=== PATIENT | male | born 1945 | race African-American/Black ===

== ENCOUNTER 2021-11-19 16:38 | Inpatient (IN) | payer OTHER ==
[2021-11-19 19:06] LABS: BASO % 0.5 % (0-2.0); EOS % 0.4 % (0-4.5); HEMOGLOBIN 10.8 GM/dL (11.7-16.9); MCH 23.6 pg (25.7-33.7); MCHC 32.7 g/dl (32.0-35.9); MEAN CELL VOLUME 72.3 fl (80-96); MEAN PLT VOLUME 8.6 fl (7.5-11.1); MONO % 11.8 % (3.8-10.2); NEUT % 78.3 % (42.8-82.8); PLATELET COUNT 283 10^3/uL (134-434); RBC 4.57 M/mm3 (4.00-5.60); RDW 15.6 % (11.9-15.9); WHITE BLOOD COUNT 11.6 K/mm3 (4.0-10.0)
[2021-11-19 19:11] LABS: INR 1.88 (0.83-1.09); PROTHROMBIN TIME (PATIENT) 21.2 SEC (9.7-13.0)
[2021-11-19 19:14] LABS: ACTIVATED PTT 37.4 SECONDS (25.2-36.5)
[2021-11-19 19:16] LABS: CHLORIDE 97 mmol/L (98-107); SODIUM 136 mmol/L (136-145)
[2021-11-19 19:19] LABS: CALCIUM 9.2 mg/dL (8.5-10.1)
[2021-11-19 19:20] LABS: ANION GAP 10 MMOL/L (8-16); BLOOD UREA NITROGEN 41.2 mg/dL (7-18); CO2 29 mmol/L (21-32); GLUCOSE,RANDOM 139 mg/dL (74-106)
[2021-11-19 19:23] LABS: CREATININE 1.4 mg/dL (0.55-1.3); SGOT/AST 40 U/L (15-37); SGPT/ALT 132 U/L (13-61)
[2021-11-19 19:24] LABS: BILIRUBIN,TOTAL 0.4 mg/dL (0.2-1)
[2021-11-19 19:26] LABS: ALK PHOS 111 U/L (45-117)
[2021-11-19 20:05] LABS: LACTIC ACID 3.2 mmol/L (0.4-2.0)
[2021-11-19] MEDS ORDERED: SODIUM CHLORIDE 0.9% 500 ML INFUS.BAG IV ONE (20:43)
[2021-11-19 22:06] LABS: LACTIC ACID 3.3 mmol/L (0.4-2.0)
[2021-11-19 22:24] LABS: LIPASE 58 U/L (73-393)
[2021-11-20] MEDS ORDERED: PIPERACILLIN/TAZOB 4.5 GM 4.5 GM in DEXTROSE 5%-WATER 100 ML IVPB ONE (00:31)
[2021-11-20] MEDS ORDERED: PIPERACILLIN/TAZOB 4.5 GM 4.5 GM/100 ML BAG IVPB ONE ×2 (00:40→18:27)
[2021-11-20 01:17] LABS: EPI CELLS 22 /uL (0-25.1); HYALINE CASTS 1 /uL (0-3.1); URINE APPEARANCE CLEAR; URINE BACTERIA >9,000 /uL (0-1359); URINE BILIRUBIN NEGATIVE (NEGATIVE); URINE COLOR YELLOW; URINE GLUCOSE (UA) NEGATIVE (NEGATIVE); URINE KETONE NEGATIVE (NEGATIVE); URINE LEUK ESTERASE 1+ (NEGATIVE); URINE NITRITE NEGATIVE (NEGATIVE); URINE PROTEIN NEGATIVE (NEGATIVE); URINE RBC 85 /uL (0-23.9); URINE UROBILINOGEN 0.2 mg/dL (0.2-1.0); URINE WBC 58 /uL (0-25.8)
[2021-11-20] MEDS ORDERED: METOCLOPRAMIDE HCL INJECTION 10 MG/2 ML VIAL IVPUSH PRN (03:53)
[2021-11-20] MEDS ORDERED: METOCLOPRAMIDE HCL INJECTION 10 MG/2 ML VIAL ONE (08:44)
[2021-11-20] MEDS ORDERED: ALBUTEROL SO4 0.083% IH SOL 2.5 MG/3 ML VIAL.NEB. NEB ONE ×3 (08:44→16:18)
[2021-11-20] MEDS ORDERED: ASPIRIN 81 MG CHEWABLE TABLETS ONE (08:44)
[2021-11-20] MEDS: ALBUTEROL SO4 0.083% IH SOL 2.5 MG/3 ML VIAL.NEB. NEB SCH ×4 (09:04→20:10)
[2021-11-20] MEDS: INSULIN SLIDING SCALE (NOVOLOG) 1 VIAL SQ SCH ×4 (09:05→21:53)
[2021-11-20] MEDS: SEVELAMER CARBONATE 0.8 GM POWDER PACKET GT SCH ×2 (09:05→18:22)
[2021-11-20] MEDS: ASPIRIN 81 MG CHEWABLE TABLETS GT SCH (09:06)
[2021-11-20] MEDS: LEVOTHYROXINE NA 150 MCG TABLET GT SCH (09:06)
[2021-11-20 09:28] LABS: INR 2.37 (0.83-1.09)
[2021-11-20 09:30] LABS: ACTIVATED PTT 35.3 SECONDS (25.2-36.5)
[2021-11-20 09:54] LABS: CHLORIDE 100 mmol/L (98-107); SODIUM 135 mmol/L (136-145)
[2021-11-20] MEDS ORDERED: PIPERACILLIN/TAZOB 2.25 GM 2.25 GM in DEXTROSE 5%-WATER - 50 ML IVPB SCH (10:00)
[2021-11-20] MEDS ORDERED: FAMOTIDINE 40 MG/5 ML ORAL SUSPENSION PO SCH (10:00)
[2021-11-20 10:04] LABS: SGOT/AST 29 U/L (15-37)
[2021-11-20 10:05] LABS: CALCIUM 8.8 mg/dL (8.5-10.1)
[2021-11-20 10:06] LABS: ALBUMIN 2.6 g/dl (3.4-5.0); ANION GAP 12 MMOL/L (8-16); BLOOD UREA NITROGEN 40.4 mg/dL (7-18); CO2 24 mmol/L (21-32); GLUCOSE,RANDOM 148 mg/dL (74-106); MAGNESIUM 2.1 mg/dL (1.8-2.4); TOT PROT 7.4 g/dl (6.4-8.2)
[2021-11-20 10:07] LABS: SGPT/ALT 107 U/L (13-61)
[2021-11-20 10:09] LABS: ALK PHOS 103 U/L (45-117); CREATININE 1.4 mg/dL (0.55-1.3)
[2021-11-20 10:30] LABS: BILIRUBIN,TOTAL 0.7 mg/dL (0.2-1)
[2021-11-20 10:37] LABS: BASO % 0.3 % (0-2.0); EOS % 0.1 % (0-4.5); HEMATOCRIT 31.8 % (35.4-49); HEMOGLOBIN 10.2 GM/dL (11.7-16.9); LYMPH % 5.3 % (8-40); MCH 23.3 pg (25.7-33.7); MEAN CELL VOLUME 72.8 fl (80-96); MEAN PLT VOLUME 9.1 fl (7.5-11.1); MONO % 10.6 % (3.8-10.2); NEUT % 83.7 % (42.8-82.8); PLATELET COUNT 287 10^3/uL (134-434); RBC 4.37 M/mm3 (4.00-5.60); RDW 15.6 % (11.9-15.9); WHITE BLOOD COUNT 16.5 K/mm3 (4.0-10.0)
[2021-11-20] MEDS ORDERED: IRON SUCROSE INJECTION 200 MG in SODIUM CHLORIDE 90 ML IVPB ONE (11:00)
[2021-11-20] MEDS ORDERED: ACETAMINOPHEN 1000 MG/100 ML BAG IVPB PRN (11:12)
[2021-11-20] MEDS ORDERED: PANTOPRAZOLE SODIUM 40 MG VIAL ONE (11:43)
[2021-11-20] MEDS ORDERED: PHYTONADIONE 10 MG/1 ML AMP IVPB ONE (11:46)
[2021-11-20] MEDS: PANTOPRAZOLE SODIUM 40 MG VIAL IVPUSH SCH (11:48)
[2021-11-20] MEDS ORDERED: PHYTONADIONE 10 MG/1 ML AMP ONE (11:55)
[2021-11-20] MEDS ORDERED: WARFARIN NA 5 MG TABLET GT SCH (18:00)
[2021-11-20] MEDS: KCL 10 MEQ IVPB 10 MEQ/100 ML INFUS.BAG IVPB SCH ×3 (18:02→19:36)
[2021-11-20] MEDS: SODIUM CHLORIDE 500 ML IV SCH (18:05)
[2021-11-20] MEDS ORDERED: KCL 10 MEQ IVPB 30 MEQ/300 ML INFUS.BAG IVPB ONE (18:24)
[2021-11-20] MEDS: PIPERACILLIN/TAZOB 2.25 GM 2.25 GM in DEXTROSE 5%-WATER - 50 ML IVPB SCH (18:36)
[2021-11-20 18:58] LABS: INR 1.73 (0.83-1.09); PROTHROMBIN TIME (PATIENT) 20.3 SEC (9.7-13.0)
[2021-11-20 19:31] VITALS: BMI 24.6
[2021-11-21] MEDS: LEVOTHYROXINE NA 150 MCG TABLET GT SCH (06:15)
[2021-11-21] MEDS: INSULIN SLIDING SCALE (NOVOLOG) 1 VIAL SQ SCH ×4 (07:19→21:01)
[2021-11-21 07:28] LABS: HEMATOCRIT 28.7 % (35.4-49); HEMOGLOBIN 9.2 GM/dL (11.7-16.9); MCH 23.4 pg (25.7-33.7); MCHC 31.9 g/dl (32.0-35.9); MEAN CELL VOLUME 73.4 fl (80-96); PLATELET COUNT 245 10^3/uL (134-434); RBC 3.91 M/mm3 (4.00-5.60); RDW 15.4 % (11.9-15.9); WHITE BLOOD COUNT 16.3 K/mm3 (4.0-10.0)
[2021-11-21 07:30] LABS: INR 1.58 (0.83-1.09); PROTHROMBIN TIME (PATIENT) 18.6 SEC (9.7-13.0)
[2021-11-21 07:32] LABS: ACTIVATED PTT 31.7 SECONDS (25.2-36.5)
[2021-11-21 07:41] LABS: CALCIUM 8.5 mg/dL (8.5-10.1)
[2021-11-21 07:42] LABS: ALBUMIN 2.5 g/dl (3.4-5.0); BLOOD UREA NITROGEN 37.8 mg/dL (7-18)
[2021-11-21 07:45] LABS: BILIRUBIN,DIRECT 0.3 mg/dL (0.0-0.2); CREATININE 1.4 mg/dL (0.55-1.3)
[2021-11-21 07:46] LABS: BILIRUBIN,TOTAL 0.7 mg/dL (0.2-1); TOT PROT 6.9 g/dl (6.4-8.2)
[2021-11-21] MEDS: SEVELAMER CARBONATE 0.8 GM POWDER PACKET GT SCH ×2 (08:30→18:30)
[2021-11-21] MEDS: ALBUTEROL SO4 0.083% IH SOL 2.5 MG/3 ML VIAL.NEB. NEB SCH ×4 (08:40→20:47)
[2021-11-21] MEDS ORDERED: PIPERACILLIN/TAZOBACTAM 2.25 GM VIAL IVPB ONE ×2 (09:19→17:55)
[2021-11-21] MEDS ORDERED: DEXTROSE 5%-WATER - 50 ML IVPB ONE ×2 (09:19→17:56)
[2021-11-21] MEDS ORDERED: PT OWN MED DRAWER 7, Y5N ONE ×3 (09:20→18:22)
[2021-11-21] MEDS ORDERED: PIPERACILLIN/TAZOB 2.25 GM 2.25 GM in DEXTROSE 5%-WATER - 50 ML IVPB SCH (10:00)
[2021-11-21] MEDS: PANTOPRAZOLE SODIUM 40 MG VIAL IVPUSH SCH (10:06)
[2021-11-21] MEDS: SODIUM CHLORIDE 500 ML IV SCH (10:06)
[2021-11-21] MEDS: ASPIRIN 81 MG CHEWABLE TABLETS GT SCH (10:27)
[2021-11-21 11:51] LABS: ANISOCYTOSIS 1+; MACROCYTOSIS 0; PLATELET ESTIMATE NORMAL
[2021-11-21] MEDS ORDERED: IRON SUCROSE INJECTION 200 MG in SODIUM CHLORIDE 90 ML IVPB ONE (13:00)
[2021-11-21] MEDS ORDERED: VANCOMYCIN 1 GRAM (PRE-DOCKED) 1,000 MG/250 ML BAG IVPB ONE (13:45)
[2021-11-21 15:17] LABS: N-TERMINAL BNP 2598.2 pg/ml (5-125)
[2021-11-21] MEDS: PIPERACILLIN/TAZOB 2.25 GM 2.25 GM in DEXTROSE 5%-WATER - 50 ML IVPB SCH (17:59)
[2021-11-21] MEDS: POTASSIUM CHLORIDE ORAL LIQUID 20 MEQ/15 ML NGT ONE ×2 (18:28→18:31)
[2021-11-21] MEDS ORDERED: POTASSIUM CHLORIDE ORAL LIQUID 20 MEQ/15 ML NGT ONE (18:30)
[2021-11-22] MEDS ORDERED: PIPERACILLIN/TAZOBACTAM 2.25 GM VIAL IVPB ONE ×3 (02:45→15:07)
[2021-11-22] MEDS ORDERED: DEXTROSE 5%-WATER - 50 ML IVPB ONE ×3 (02:45→15:07)
[2021-11-22] MEDS: PIPERACILLIN/TAZOB 2.25 GM 2.25 GM in DEXTROSE 5%-WATER - 50 ML IVPB SCH ×6 (02:59→20:10)
[2021-11-22] MEDS: ALBUTEROL SO4 0.083% IH SOL 2.5 MG/3 ML VIAL.NEB. NEB SCH ×4 (07:35→20:30)
[2021-11-22] MEDS: INSULIN SLIDING SCALE (NOVOLOG) 1 VIAL SQ SCH ×4 (07:53→23:04)
[2021-11-22 08:47] LABS: INR 1.35 (0.83-1.09); PROTHROMBIN TIME (PATIENT) 15.8 SEC (9.7-13.0)
[2021-11-22 08:48] LABS: ACTIVATED PTT 30.6 SECONDS (25.2-36.5)
[2021-11-22 08:58] LABS: CHLORIDE 101 mmol/L (98-107); SODIUM 137 mmol/L (136-145)
[2021-11-22 09:07] LABS: ALBUMIN 2.2 g/dl (3.4-5.0); BLOOD UREA NITROGEN 38.5 mg/dL (7-18); CALCIUM 8.3 mg/dL (8.5-10.1); CREATININE 1.5 mg/dL (0.55-1.3); GLUCOSE,RANDOM 128 mg/dL (74-106); SGPT/ALT 55 U/L (13-61)
[2021-11-22 09:08] LABS: ANION GAP 10 MMOL/L (8-16); BILIRUBIN,TOTAL 0.4 mg/dL (0.2-1); CO2 25 mmol/L (21-32); MAGNESIUM 2.2 mg/dL (1.8-2.4)
[2021-11-22 09:09] LABS: TOT PROT 6.5 g/dl (6.4-8.2)
[2021-11-22 09:10] LABS: ALK PHOS 95 U/L (45-117); SGOT/AST 15 U/L (15-37)
[2021-11-22 09:11] LABS: PHOSPHOROUS 3.8 mg/dL (2.5-4.9)
[2021-11-22 09:16] LABS: BASO % 0.4 % (0-2.0); EOS % 1.7 % (0-4.5); HEMATOCRIT 27.2 % (35.4-49); HEMOGLOBIN 8.9 GM/dL (11.7-16.9); LYMPH % 7.3 % (8-40); MCH 23.8 pg (25.7-33.7); MCHC 32.5 g/dl (32.0-35.9); MEAN CELL VOLUME 73.2 fl (80-96); MEAN PLT VOLUME 8.9 fl (7.5-11.1); MONO % 7.9 % (3.8-10.2); NEUT % 82.7 % (42.8-82.8); PLATELET COUNT 245 10^3/uL (134-434); RBC 3.72 M/mm3 (4.00-5.60); RDW 15.9 % (11.9-15.9); WHITE BLOOD COUNT 10.8 K/mm3 (4.0-10.0)
[2021-11-22] MEDS: PANTOPRAZOLE SODIUM 40 MG VIAL IVPUSH SCH (10:56)
[2021-11-22] MEDS: ACETAMINOPHEN 325 MG TABLET (FP) PO PRN (10:57)
[2021-11-22] MEDS: ASPIRIN 81 MG CHEWABLE TABLETS GT SCH (10:57)
[2021-11-22] MEDS: SEVELAMER CARBONATE 0.8 GM POWDER PACKET GT SCH ×2 (10:58→17:52)
[2021-11-22] MEDS ORDERED: PT OWN MED DRAWER 7, Y5N ONE (11:03)
[2021-11-22] MEDS: LEVOTHYROXINE NA 150 MCG TABLET GT SCH (11:54)
[2021-11-22] MEDS: SODIUM CHLORIDE 500 ML IV SCH (17:57)
[2021-11-23] MEDS ORDERED: VANCOMYCIN 1 GRAM (PRE-DOCKED) 1,000 MG/250 ML BAG IVPB ONE (00:38)
[2021-11-23] MEDS: PIPERACILLIN/TAZOB 2.25 GM 2.25 GM in DEXTROSE 5%-WATER - 50 ML IVPB SCH ×3 (02:35→17:39)
[2021-11-23] MEDS ORDERED: DEXTROSE 5%-WATER - 50 ML IVPB ONE ×3 (02:42→17:28)
[2021-11-23] MEDS ORDERED: PIPERACILLIN/TAZOBACTAM 2.25 GM VIAL IVPB ONE ×3 (02:42→17:28)
[2021-11-23] MEDS: INSULIN SLIDING SCALE (NOVOLOG) 1 VIAL SQ SCH ×4 (07:18→21:38)
[2021-11-23] MEDS: LEVOTHYROXINE NA 150 MCG TABLET GT SCH (07:18)
[2021-11-23 07:21] LABS: HEMATOCRIT 27.9 % (35.4-49); HEMOGLOBIN 8.9 GM/dL (11.7-16.9); MCH 23.2 pg (25.7-33.7); MCHC 32.1 g/dl (32.0-35.9); MEAN CELL VOLUME 72.5 fl (80-96); MEAN PLT VOLUME 8.2 fl (7.5-11.1); PLATELET COUNT 280 10^3/uL (134-434); RBC 3.85 M/mm3 (4.00-5.60); RDW 15.1 % (11.9-15.9); WHITE BLOOD COUNT 8.8 K/mm3 (4.0-10.0)
[2021-11-23 07:22] LABS: INR 1.23 (0.83-1.09); PROTHROMBIN TIME (PATIENT) 14.4 SEC (9.7-13.0)
[2021-11-23 07:25] LABS: ACTIVATED PTT 29.4 SECONDS (25.2-36.5)
[2021-11-23 07:50] LABS: BLOOD UREA NITROGEN 32.9 mg/dL (7-18); CALCIUM 8.4 mg/dL (8.5-10.1)
[2021-11-23] MEDS: ALBUTEROL SO4 0.083% IH SOL 2.5 MG/3 ML VIAL.NEB. NEB SCH ×4 (07:50→20:10)
[2021-11-23 07:54] LABS: CREATININE 1.4 mg/dL (0.55-1.3)
[2021-11-23 08:06] LABS: CARCINOEMBRYONIC ANTIGEN 2.7 ng/mL (0.0-4.7)
[2021-11-23] MEDS: PANTOPRAZOLE SODIUM 40 MG VIAL IVPUSH SCH (10:26)
[2021-11-23] MEDS: ASPIRIN 81 MG CHEWABLE TABLETS GT SCH (10:29)
[2021-11-23] MEDS: SEVELAMER CARBONATE 0.8 GM POWDER PACKET GT SCH ×2 (10:29→17:45)
[2021-11-23] MEDS: SODIUM CHLORIDE 500 ML IV SCH (17:45)
[2021-11-24] MEDS ORDERED: PIPERACILLIN/TAZOBACTAM 2.25 GM VIAL IVPB ONE ×2 (00:28→09:10)
[2021-11-24] MEDS ORDERED: DEXTROSE 5%-WATER - 50 ML IVPB ONE ×2 (00:29→09:10)
[2021-11-24] MEDS: PIPERACILLIN/TAZOB 2.25 GM 2.25 GM in DEXTROSE 5%-WATER - 50 ML IVPB SCH ×2 (01:10→09:13)
[2021-11-24] MEDS: LEVOTHYROXINE NA 150 MCG TABLET GT SCH ×2 (06:16→06:29)
[2021-11-24] MEDS: INSULIN SLIDING SCALE (NOVOLOG) 1 VIAL SQ SCH ×4 (06:28→21:45)
[2021-11-24 06:55] LABS: HEMATOCRIT 26.3 % (35.4-49); HEMOGLOBIN 8.5 GM/dL (11.7-16.9); MCH 23.4 pg (25.7-33.7); MCHC 32.2 g/dl (32.0-35.9); MEAN CELL VOLUME 72.7 fl (80-96); MEAN PLT VOLUME 8.1 fl (7.5-11.1); PLATELET COUNT 290 10^3/uL (134-434); RBC 3.62 M/mm3 (4.00-5.60); RDW 15.1 % (11.9-15.9); WHITE BLOOD COUNT 6.6 K/mm3 (4.0-10.0)
[2021-11-24 07:07] LABS: INR 1.27 (0.83-1.09); PROTHROMBIN TIME (PATIENT) 14.3 SEC (9.7-13.0)
[2021-11-24 07:12] LABS: CALCIUM 8.3 mg/dL (8.5-10.1)
[2021-11-24 07:13] LABS: BLOOD UREA NITROGEN 28.9 mg/dL (7-18)
[2021-11-24 07:16] LABS: CREATININE 1.3 mg/dL (0.55-1.3)
[2021-11-24] MEDS: ALBUTEROL SO4 0.083% IH SOL 2.5 MG/3 ML VIAL.NEB. NEB SCH ×4 (07:25→20:35)
[2021-11-24] MEDS: SEVELAMER CARBONATE 0.8 GM POWDER PACKET GT SCH ×2 (09:12→16:34)
[2021-11-24] MEDS: PANTOPRAZOLE SODIUM 40 MG VIAL IVPUSH SCH (09:13)
[2021-11-24] MEDS: ASPIRIN 81 MG CHEWABLE TABLETS GT SCH (09:13)
[2021-11-24 10:16] LABS: ALBUMIN 2.2 g/dl (3.4-5.0)
[2021-11-24 10:21] LABS: BILIRUBIN,TOTAL 0.7 mg/dL (0.2-1); TOT PROT 6.6 g/dl (6.4-8.2)
[2021-11-24] MEDS ORDERED: DEXTROSE 5%-WATER 100 ML IVPB ONE (13:39)
[2021-11-24] MEDS: CEFTRIAXONE 2 GM in DEXTROSE 5%-WATER 2 GM/100 ML BAG IVPB SCH (13:41)
[2021-11-24] MEDS: AMPICILLIN - 2 GM in SODIUM CHLORIDE 100 ML IVPB SCH (17:09)
[2021-11-24] MEDS: SODIUM CHLORIDE 500 ML IV SCH (21:45)
[2021-11-25] MEDS: INSULIN SLIDING SCALE (NOVOLOG) 1 VIAL SQ SCH ×4 (06:53→21:49)
[2021-11-25] MEDS ORDERED: PT OWN MED DRAWER 7, Y5N ONE ×2 (06:54→19:15)
[2021-11-25] MEDS: AMPICILLIN - 2 GM in SODIUM CHLORIDE 100 ML IVPB SCH ×2 (06:57→19:29)
[2021-11-25] MEDS: LEVOTHYROXINE NA 150 MCG TABLET GT SCH (06:57)
[2021-11-25 07:13] LABS: HEMATOCRIT 28.7 % (35.4-49); HEMOGLOBIN 9.1 GM/dL (11.7-16.9); MCH 23.2 pg (25.7-33.7); MCHC 31.5 g/dl (32.0-35.9); MEAN CELL VOLUME 73.6 fl (80-96); MEAN PLT VOLUME 7.9 fl (7.5-11.1); PLATELET COUNT 312 10^3/uL (134-434); RDW 15.4 % (11.9-15.9)
[2021-11-25] MEDS: ALBUTEROL SO4 0.083% IH SOL 2.5 MG/3 ML VIAL.NEB. NEB SCH ×4 (07:20→20:10)
[2021-11-25 07:21] LABS: INR 1.24 (0.83-1.09); PROTHROMBIN TIME (PATIENT) 14.5 SEC (9.7-13.0)
[2021-11-25 07:23] LABS: ACTIVATED PTT 30.7 SECONDS (25.2-36.5)
[2021-11-25 07:39] LABS: ALBUMIN 2.3 g/dl (3.4-5.0); CALCIUM 8.6 mg/dL (8.5-10.1)
[2021-11-25 07:40] LABS: MAGNESIUM 2.3 mg/dL (1.8-2.4)
[2021-11-25 07:42] LABS: PHOSPHOROUS 3.1 mg/dL (2.5-4.9)
[2021-11-25 07:43] LABS: CREATININE 1.1 mg/dL (0.55-1.3)
[2021-11-25 07:44] LABS: BILIRUBIN,TOTAL 0.4 mg/dL (0.2-1); TOT PROT 6.7 g/dl (6.4-8.2)
[2021-11-25] MEDS ORDERED: DEXTROSE 5%-WATER 100 ML IVPB ONE (09:07)
[2021-11-25] MEDS: ASPIRIN 81 MG CHEWABLE TABLETS GT SCH (09:33)
[2021-11-25] MEDS: CEFTRIAXONE 2 GM in DEXTROSE 5%-WATER 2 GM/100 ML BAG IVPB SCH (09:33)
[2021-11-25] MEDS: PANTOPRAZOLE SODIUM 40 MG VIAL IVPUSH SCH (09:33)
[2021-11-25] MEDS: SEVELAMER CARBONATE 0.8 GM POWDER PACKET GT SCH ×2 (09:34→16:44)
[2021-11-25] MEDS: SODIUM CHLORIDE 500 ML IV SCH (18:00)
[2021-11-26] MEDS: AMPICILLIN - 2 GM in SODIUM CHLORIDE 100 ML IVPB SCH ×2 (06:04→18:28)
[2021-11-26] MEDS: INSULIN SLIDING SCALE (NOVOLOG) 1 VIAL SQ SCH ×4 (06:04→21:18)
[2021-11-26] MEDS: LEVOTHYROXINE NA 150 MCG TABLET GT SCH (06:04)
[2021-11-26 06:53] LABS: HEMATOCRIT 29.5 % (35.4-49); HEMOGLOBIN 9.3 GM/dL (11.7-16.9); MCH 23.1 pg (25.7-33.7); MCHC 31.4 g/dl (32.0-35.9); MEAN CELL VOLUME 73.5 fl (80-96); MEAN PLT VOLUME 7.9 fl (7.5-11.1); PLATELET COUNT 329 10^3/uL (134-434); RBC 4.02 M/mm3 (4.00-5.60); RDW 15.1 % (11.9-15.9); WHITE BLOOD COUNT 6.8 K/mm3 (4.0-10.0)
[2021-11-26 08:08] LABS: ALBUMIN 2.3 g/dl (3.4-5.0)
[2021-11-26 08:09] LABS: CALCIUM 8.7 mg/dL (8.5-10.1)
[2021-11-26 08:11] LABS: CREATININE 1.1 mg/dL (0.55-1.3)
[2021-11-26 08:13] LABS: BILIRUBIN,TOTAL 0.4 mg/dL (0.2-1); TOT PROT 6.8 g/dl (6.4-8.2)
[2021-11-26] MEDS: ALBUTEROL SO4 0.083% IH SOL 2.5 MG/3 ML VIAL.NEB. NEB SCH ×4 (08:15→20:43)
[2021-11-26] MEDS ORDERED: DEXTROSE 5%-WATER 100 ML IVPB ONE (09:05)
[2021-11-26] MEDS: SEVELAMER CARBONATE 0.8 GM POWDER PACKET GT SCH (10:00)
[2021-11-26] MEDS: ASPIRIN 81 MG CHEWABLE TABLETS GT SCH (10:01)
[2021-11-26] MEDS: CEFTRIAXONE 2 GM in DEXTROSE 5%-WATER 2 GM/100 ML BAG IVPB SCH (10:01)
[2021-11-26] MEDS: PANTOPRAZOLE SODIUM 40 MG VIAL IVPUSH SCH (10:01)
[2021-11-26] MEDS ORDERED: PT OWN MED DRAWER 7, Y5N ONE (17:40)
[2021-11-26] MEDS: SODIUM CHLORIDE 500 ML IV SCH (18:28)
[2021-11-27] MEDS ORDERED: PT OWN MED DRAWER 7, Y5N ONE (06:02)
[2021-11-27] MEDS: AMPICILLIN - 2 GM in SODIUM CHLORIDE 100 ML IVPB SCH ×2 (06:16→17:51)
[2021-11-27] MEDS: INSULIN SLIDING SCALE (NOVOLOG) 1 VIAL SQ SCH ×4 (06:16→22:22)
[2021-11-27] MEDS: LEVOTHYROXINE NA 150 MCG TABLET GT SCH (06:16)
[2021-11-27 07:13] LABS: HEMATOCRIT 28.5 % (35.4-49); MCH 23.2 pg (25.7-33.7); MCHC 31.5 g/dl (32.0-35.9); MEAN CELL VOLUME 73.7 fl (80-96); MEAN PLT VOLUME 7.6 fl (7.5-11.1); PLATELET COUNT 331 10^3/uL (134-434); RBC 3.87 M/mm3 (4.00-5.60); RDW 15.1 % (11.9-15.9); WHITE BLOOD COUNT 6.2 K/mm3 (4.0-10.0)
[2021-11-27 07:23] LABS: CALCIUM 8.9 mg/dL (8.5-10.1)
[2021-11-27 07:24] LABS: ALBUMIN 2.4 g/dl (3.4-5.0); BLOOD UREA NITROGEN 18.4 mg/dL (7-18)
[2021-11-27 07:28] LABS: BILIRUBIN,TOTAL 0.4 mg/dL (0.2-1)
[2021-11-27] MEDS: ALBUTEROL SO4 0.083% IH SOL 2.5 MG/3 ML VIAL.NEB. NEB SCH ×4 (07:40→20:35)
[2021-11-27] MEDS ORDERED: DEXTROSE 5%-WATER 100 ML IVPB ONE (09:47)
[2021-11-27] MEDS: CEFTRIAXONE 2 GM in DEXTROSE 5%-WATER 2 GM/100 ML BAG IVPB SCH (09:48)
[2021-11-27] MEDS: ASPIRIN 81 MG CHEWABLE TABLETS GT SCH (09:48)
[2021-11-27] MEDS: PANTOPRAZOLE SODIUM 40 MG VIAL IVPUSH SCH (09:48)
[2021-11-27] MEDS: SODIUM CHLORIDE 500 ML IV SCH (17:50)
[2021-11-28] MEDS ORDERED: PT OWN MED DRAWER 7, Y5N ONE ×2 (05:36→17:33)
[2021-11-28] MEDS: INSULIN SLIDING SCALE (NOVOLOG) 1 VIAL SQ SCH ×4 (06:48→23:03)
[2021-11-28] MEDS: AMPICILLIN - 2 GM in SODIUM CHLORIDE 100 ML IVPB SCH ×2 (06:48→17:48)
[2021-11-28] MEDS: LEVOTHYROXINE NA 150 MCG TABLET GT SCH (06:49)
[2021-11-28 07:14] LABS: ALBUMIN 2.4 g/dl (3.4-5.0); BLOOD UREA NITROGEN 16.7 mg/dL (7-18)
[2021-11-28 07:18] LABS: BILIRUBIN,TOTAL 0.4 mg/dL (0.2-1)
[2021-11-28 07:19] LABS: TOT PROT 6.8 g/dl (6.4-8.2)
[2021-11-28 07:25] LABS: HEMATOCRIT 30.8 % (35.4-49); HEMOGLOBIN 9.6 GM/dL (11.7-16.9); MCHC 31.3 g/dl (32.0-35.9); MEAN CELL VOLUME 73.5 fl (80-96); MEAN PLT VOLUME 7.8 fl (7.5-11.1); PLATELET COUNT 324 10^3/uL (134-434); RBC 4.19 M/mm3 (4.00-5.60); RDW 15.3 % (11.9-15.9); WHITE BLOOD COUNT 4.8 K/mm3 (4.0-10.0)
[2021-11-28 07:32] LABS: INR 1.3 (0.83-1.09); PROTHROMBIN TIME (PATIENT) 14.6 SEC (9.7-13.0)
[2021-11-28 07:33] LABS: ACTIVATED PTT 32.4 SECONDS (25.2-36.5)
[2021-11-28] MEDS ORDERED: DEXTROSE 5%-WATER 100 ML IVPB ONE (08:55)
[2021-11-28] MEDS: PANTOPRAZOLE SODIUM 40 MG VIAL IVPUSH SCH (09:02)
[2021-11-28] MEDS: CEFTRIAXONE 2 GM in DEXTROSE 5%-WATER 2 GM/100 ML BAG IVPB SCH (09:02)
[2021-11-28] MEDS: ALBUTEROL SO4 0.083% IH SOL 2.5 MG/3 ML VIAL.NEB. NEB SCH ×4 (09:16→20:47)
[2021-11-28] MEDS: SODIUM CHLORIDE 500 ML IV SCH (17:48)
[2021-11-29 06:57] LABS: HEMOGLOBIN 9.7 GM/dL (11.7-16.9); MCH 23.7 pg (25.7-33.7); MCHC 32.3 g/dl (32.0-35.9); MEAN CELL VOLUME 73.5 fl (80-96); MEAN PLT VOLUME 7.4 fl (7.5-11.1); PLATELET COUNT 305 10^3/uL (134-434); RBC 4.09 M/mm3 (4.00-5.60); RDW 15.7 % (11.9-15.9); WHITE BLOOD COUNT 5.4 K/mm3 (4.0-10.0)
[2021-11-29] MEDS ORDERED: PT OWN MED DRAWER 7, Y5N ONE (07:00)
[2021-11-29] MEDS: AMPICILLIN - 2 GM in SODIUM CHLORIDE 100 ML IVPB SCH ×2 (07:02→19:35)
[2021-11-29] MEDS: LEVOTHYROXINE NA 150 MCG TABLET GT SCH (07:03)
[2021-11-29] MEDS: INSULIN SLIDING SCALE (NOVOLOG) 1 VIAL SQ SCH ×4 (07:03→21:19)
[2021-11-29 07:11] LABS: CALCIUM 8.8 mg/dL (8.5-10.1)
[2021-11-29 07:12] LABS: ALBUMIN 2.6 g/dl (3.4-5.0); BLOOD UREA NITROGEN 17.2 mg/dL (7-18); MAGNESIUM 2.1 mg/dL (1.8-2.4)
[2021-11-29 07:15] LABS: PHOSPHOROUS 3.6 mg/dL (2.5-4.9)
[2021-11-29 07:16] LABS: BILIRUBIN,TOTAL 0.2 mg/dL (0.2-1); TOT PROT 7.1 g/dl (6.4-8.2)
[2021-11-29] MEDS: ALBUTEROL SO4 0.083% IH SOL 2.5 MG/3 ML VIAL.NEB. NEB SCH ×4 (07:50→20:58)
[2021-11-29] MEDS ORDERED: DEXTROSE 5%-WATER 100 ML IVPB ONE (10:32)
[2021-11-29] MEDS: CEFTRIAXONE 2 GM in DEXTROSE 5%-WATER 2 GM/100 ML BAG IVPB SCH (10:53)
[2021-11-29] MEDS: PANTOPRAZOLE SODIUM 40 MG VIAL IVPUSH SCH (10:53)
[2021-11-30] MEDS: AMPICILLIN - 2 GM in SODIUM CHLORIDE 100 ML IVPB SCH ×2 (06:24→18:38)
[2021-11-30 07:00] LABS: HEMATOCRIT 31.1 % (35.4-49); HEMOGLOBIN 9.6 GM/dL (11.7-16.9); MCH 22.6 pg (25.7-33.7); MCHC 30.9 g/dl (32.0-35.9); MEAN PLT VOLUME 7.8 fl (7.5-11.1); PLATELET COUNT 296 10^3/uL (134-434); RBC 4.25 M/mm3 (4.00-5.60); RDW 15.3 % (11.9-15.9)
[2021-11-30] MEDS: LEVOTHYROXINE NA 150 MCG TABLET GT SCH (07:24)
[2021-11-30] MEDS: INSULIN SLIDING SCALE (NOVOLOG) 1 VIAL SQ SCH ×4 (07:24→21:41)
[2021-11-30 07:34] LABS: BLOOD UREA NITROGEN 16.8 mg/dL (7-18); CALCIUM 9.2 mg/dL (8.5-10.1); MAGNESIUM 2.1 mg/dL (1.8-2.4)
[2021-11-30 07:37] LABS: PHOSPHOROUS 3.6 mg/dL (2.5-4.9)
[2021-11-30 07:38] LABS: TOT PROT 6.9 g/dl (6.4-8.2)
[2021-11-30 07:39] LABS: BILIRUBIN,TOTAL 0.3 mg/dL (0.2-1)
[2021-11-30 07:41] LABS: ALBUMIN 2.8 g/dl (3.4-5.0)
[2021-11-30] MEDS ORDERED: POTASSIUM CHLORIDE ORAL LIQUID 20 MEQ/15 ML PO ONE (07:54)
[2021-11-30] MEDS: ALBUTEROL SO4 0.083% IH SOL 2.5 MG/3 ML VIAL.NEB. NEB SCH ×4 (07:58→20:10)
[2021-11-30] MEDS ORDERED: DEXTROSE 5%-0.45% SALINE 1,000 ML IV SCH (08:00)
[2021-11-30] MEDS ORDERED: PT OWN MED DRAWER 7, Y5N ONE ×2 (08:48→18:35)
[2021-11-30] MEDS: PANTOPRAZOLE SODIUM 40 MG VIAL IVPUSH SCH (09:09)
[2021-11-30] MEDS ORDERED: DEXTROSE 5%-WATER 100 ML IVPB ONE (09:22)
[2021-11-30] MEDS: CEFTRIAXONE 2 GM in DEXTROSE 5%-WATER 2 GM/100 ML BAG IVPB SCH (10:23)
[2021-11-30] MEDS: ACETAMINOPHEN 325 MG TABLET (FP) PO PRN (10:24)
[2021-11-30] MEDS ORDERED: FONDAPARINUX SODIUM 5 MG/0.4 ML DISP.SYRIN SQ SCH (14:15)
[2021-11-30] MEDS: FONDAPARINUX SODIUM 7.5 MG/0.6 ML SYRINGE SQ SCH (18:39)
[2021-11-30] MEDS: WARFARIN NA 5 MG TABLET PO SCH (18:40)
[2021-12-01] MEDS ORDERED: PT OWN MED DRAWER 7, Y5N ONE ×2 (05:57→18:42)
[2021-12-01] MEDS: LEVOTHYROXINE NA 150 MCG TABLET GT SCH (06:21)
[2021-12-01] MEDS: AMPICILLIN - 2 GM in SODIUM CHLORIDE 100 ML IVPB SCH ×2 (06:21→18:43)
[2021-12-01] MEDS: INSULIN SLIDING SCALE (NOVOLOG) 1 VIAL SQ SCH ×3 (06:36→16:43)
[2021-12-01 07:19] LABS: HEMATOCRIT 29.6 % (35.4-49); HEMOGLOBIN 9.2 GM/dL (11.7-16.9); MCH 22.9 pg (25.7-33.7); MEAN CELL VOLUME 73.9 fl (80-96); PLATELET COUNT 271 10^3/uL (134-434); RBC 4.01 M/mm3 (4.00-5.60); RDW 15.3 % (11.9-15.9); WHITE BLOOD COUNT 5.9 K/mm3 (4.0-10.0)
[2021-12-01 07:35] LABS: INR 1.36 (0.83-1.09)
[2021-12-01 07:47] LABS: CALCIUM 8.9 mg/dL (8.5-10.1)
[2021-12-01 07:48] LABS: BLOOD UREA NITROGEN 15.6 mg/dL (7-18); MAGNESIUM 2.2 mg/dL (1.8-2.4)
[2021-12-01 07:50] LABS: BILIRUBIN,TOTAL 0.2 mg/dL (0.2-1); CREATININE 1.1 mg/dL (0.55-1.3); PHOSPHOROUS 3.1 mg/dL (2.5-4.9)
[2021-12-01] MEDS: ALBUTEROL SO4 0.083% IH SOL 2.5 MG/3 ML VIAL.NEB. NEB SCH ×3 (07:50→15:06)
[2021-12-01 07:52] LABS: TOT PROT 6.9 g/dl (6.4-8.2)
[2021-12-01 07:56] LABS: ALBUMIN 2.8 g/dl (3.4-5.0)
[2021-12-01] MEDS ORDERED: DEXTROSE 5%-WATER 100 ML IVPB ONE (09:29)
[2021-12-01] MEDS: PANTOPRAZOLE SODIUM 40 MG VIAL IVPUSH SCH (09:45)
[2021-12-01] MEDS: CEFTRIAXONE 2 GM in DEXTROSE 5%-WATER 2 GM/100 ML BAG IVPB SCH (09:45)
[2021-12-01] MEDS: ASPIRIN 81 MG CHEWABLE TABLETS GT SCH (09:45)
[2021-12-01] MEDS: FONDAPARINUX SODIUM 7.5 MG/0.6 ML SYRINGE SQ SCH (09:46)
[2021-12-01 13:51] VITALS: PULSE 70
[2021-12-01] MEDS: WARFARIN NA 5 MG TABLET PO SCH (18:43)
[2021-12-01 20:45] VITALS: BP 123/75; TEMP 98
== END 2021-12-01 20:46 | disposition home or self-care (01) | DRG 870 ==
LOC: JER 16:38 → JERBED 11-20 02:14 → J2W 11-20 19:17
PROVIDERS: ADMIT Internal Medicine; ATTEND Internal Medicine
PROC: 5A1955Z Respiratory Ventilation, Greater than 96 Consecutive Hours (ICD-10-PCS; principal; 2021-11-20)
PROC: 3E0G76Z Introduction of Nutritional Substance into Upper GI, Via Natural or Artificial Opening (ICD-10-PCS; 2021-11-20)
PROC: 0F9430Z Drainage of Gallbladder with Drainage Device, Percutaneous Approach (ICD-10-PCS; 2021-11-20)
PROC: BF12YZZ Fluoroscopy of Gallbladder using Other Contrast (ICD-10-PCS; 2021-11-20)
PROC: 0JPT0XZ Removal of Tunneled Vascular Access Device from Trunk Subcutaneous Tissue and Fascia, Open Approach (ICD-10-PCS; 2021-11-30)
DX: A41.9 Sepsis, unspecified organism (principal); N18.6 End stage renal disease; N39.0 Urinary tract infection, site not specified; Z99.11 Dependence on respirator [ventilator] status; E87.2 Acidosis; J98.11 Atelectasis; K80.42 Calculus of bile duct with acute cholecystitis without obstruction; J96.10 Chronic respiratory failure, unspecified whether with hypoxia or hypercapnia; I13.2 Hypertensive heart and chronic kidney disease with heart failure and with stage 5 chronic kidney disease, or end stage renal disease; I50.32 Chronic diastolic (congestive) heart failure; N17.9 Acute kidney failure, unspecified; G93.1 Anoxic brain damage, not elsewhere classified; R65.20 Severe sepsis without septic shock; I25.2 Old myocardial infarction; Z93.1 Gastrostomy status; E03.9 Hypothyroidism, unspecified; E11.9 Type 2 diabetes mellitus without complications; Z86.73 Personal history of transient ischemic attack (TIA), and cerebral infarction without residual deficits; E11.22 Type 2 diabetes mellitus with diabetic chronic kidney disease; Z99.2 Dependence on renal dialysis; K80.20 Calculus of gallbladder without cholecystitis without obstruction; D50.9 Iron deficiency anemia, unspecified; I44.0 Atrioventricular block, first degree; K63.9 Disease of intestine, unspecified; E87.6 Hypokalemia; D63.1 Anemia in chronic kidney disease; R16.0 Hepatomegaly, not elsewhere classified
CPT/HCPCS: 36415; 36430; 36589; 47490; 71045-TC-FY; 74176-TC; 76705-TC; 80048; 80053; 80061; 80076; 81003; 82272; 82378; 82550; 82553; 82728; 82962; 83036; 83540; 83550; 83605; 83690; 83735; 83880; 84100; 84443; 84484; 85025; 85027; 85610; 85730; 86022; 86301; 86850; 86900; 86901; 87040; 87070; 87075; 87086; 87102; 87116; 87186; 87205; 87206; 87210; 93005; 93010; 93306-TC; 93880-TC; 94002; 94640; 99285-25; C1729; C1769; C9803; G0480; J1756; P9017; U0003; U0005

== ENCOUNTER 2021-12-26 08:53 | Inpatient (IN) | payer OTHER ==
[2021-12-26] MEDS ORDERED: PIPERACILLIN/TAZOB 4.5 GM 4.5 GM in DEXTROSE 5%-WATER 100 ML IVPB ONE (10:40)
[2021-12-26] MEDS ORDERED: VANCOMYCIN 1 GM in D5W (PRE-DOCKED) 1,000 MG/250 ML IVPB ONE (10:40)
[2021-12-26] MEDS ORDERED: ACETAMINOPHEN 1000 MG/100 ML BAG IVPB ONE (10:40)
[2021-12-26] MEDS ORDERED: ACETAMINOPHEN INJECTION 100 ML IVPB ONE (10:48)
[2021-12-26] MEDS ORDERED: PIPERACILLIN/TAZOB 4.5 GM 4.5 GM/100 ML BAG IVPB ONE (10:49)
[2021-12-26] MEDS ORDERED: VANCOMYCIN 1 GRAM (PRE-DOCKED) 1,000 MG/250 ML BAG IVPB ONE (10:49)
[2021-12-26 11:05] LABS: HEMATOCRIT 33.9 % (35.4-49); HEMOGLOBIN 9.9 GM/dL (11.7-16.9); MCH 21.9 pg (25.7-33.7); MCHC 29.2 g/dl (32.0-35.9); MEAN CELL VOLUME 75.2 fl (80-96); MEAN PLT VOLUME 9.8 fl (7.5-11.1); PLATELET COUNT 458 10^3/uL (134-434); RDW 16.3 % (11.9-15.9); WHITE BLOOD COUNT 23.1 K/mm3 (4.0-10.0)
[2021-12-26 11:23] LABS: VENOUS BASE EXCESS -14.4 mmol/L (-2-2); VENOUS O2 SATURATION 25.9 % (70-80); VENOUS PCO2 64.9 mmHg (38-52)
[2021-12-26 11:25] LABS: CHLORIDE 112 mmol/L (98-107); SODIUM 154 mmol/L (136-145)
[2021-12-26 11:27] LABS: CALCIUM 9.8 mg/dL (8.5-10.1); VENOUS PH 7.034 (7.310-7.410)
[2021-12-26 11:28] LABS: ALBUMIN 2.9 g/dl (3.4-5.0); ANION GAP 22 MMOL/L (8-16); CO2 20 mmol/L (21-32); GLUCOSE,RANDOM 266 mg/dL (74-106)
[2021-12-26 11:31] LABS: SGOT/AST 21 U/L (15-37); SGPT/ALT 148 U/L (13-61)
[2021-12-26 11:32] LABS: TOT PROT 8.7 g/dl (6.4-8.2)
[2021-12-26 11:33] LABS: ALK PHOS 173 U/L (45-117)
[2021-12-26] MEDS ORDERED: SODIUM CHLORIDE 1,000 ML IV STA (11:35)
[2021-12-26] MEDS ORDERED: SODIUM CHLORIDE 2,000 ML IV STA (11:39)
[2021-12-26 11:50] LABS: PROTHROMBIN TIME (PATIENT) > 230.00 SEC (9.7-13.0)
[2021-12-26 11:51] LABS: INR > 15.00 (0.83-1.09)
[2021-12-26] MEDS ORDERED: PHYTONADIONE 5 MG TABLET PO ONE (11:55)
[2021-12-26] MEDS ORDERED: PHYTONADIONE 5 MG TABLET ONE (12:04)
[2021-12-26 12:13] LABS: ANISOCYTOSIS 0; HELMET CELLS 0; HOWELL-JOLLY BODIES 0; MACROCYTOSIS 0; OVALOCYTE 0; PLATELET ESTIMATE NORMAL; ROULEAU 0; SICKELED CELLS 0; TARGET CELLS 0; TEAR DROP CELLS 0; TOXIC GRANULATION 0
[2021-12-26 12:16] LABS: URINE BILIRUBIN 2+ (NEGATIVE); URINE GLUCOSE (UA) Negative (NEGATIVE); URINE KETONE Trace (NEGATIVE); URINE LEUK ESTERASE Trace (NEGATIVE); URINE NITRITE Positive (NEGATIVE); URINE PROTEIN 3+ (NEGATIVE); URINE UROBILINOGEN 0.2 mg/dL (0.2-1.0)
[2021-12-26 12:18] LABS: URINE APPEARANCE Clear; URINE COLOR Yellow
[2021-12-26 12:19] LABS: BILIRUBIN,TOTAL 0.6 mg/dL (0.2-1)
[2021-12-26 12:21] LABS: EPI CELLS FEW /HPF; URINE RBC >100 /hpf (0-4); URINE WBC 5 (NEGATIVE)
[2021-12-26 12:22] LABS: URINE BACTERIA FEW /hpf (NEGATIVE)
[2021-12-26 12:27] LABS: BLOOD UREA NITROGEN 148.1 mg/dL (7-18)
[2021-12-26 13:55] LABS: ARTERIAL BLD GAS O2 SATURATION 98.6 % (95-98); ARTERIAL BLOOD GAS BASE EXCESS -9.2 mmol/L (-2-2); ARTERIAL BLOOD GAS pH 7.326 (7.350-7.450)
[2021-12-26 13:58] LABS: ALLENS TEST POSITIVE
[2021-12-26 13:59] LABS: VENT MODE A/C; VENT RATE 18
[2021-12-26 14:55] LABS: LACTIC ACID 10.3 mmol/L (0.4-2.0)
[2021-12-26 15:00] LABS: HEMATOCRIT 21.9 % (35.4-49); MCH 22.3 pg (25.7-33.7); MCHC 30.1 g/dl (32.0-35.9); MEAN CELL VOLUME 74.1 fl (80-96); MEAN PLT VOLUME 9.4 fl (7.5-11.1); PLATELET COUNT 247 10^3/uL (134-434); RBC 2.96 M/mm3 (4.00-5.60); RDW 15.9 % (11.9-15.9); WHITE BLOOD COUNT 19.7 K/mm3 (4.0-10.0)
[2021-12-26 15:10] LABS: HEMOGLOBIN 6.6 GM/dL (11.7-16.9)
[2021-12-26 15:48] LABS: ALBUMIN 2.2 g/dl (3.4-5.0); ALK PHOS 124 U/L (45-117); ANION GAP 22 MMOL/L (8-16); BILIRUBIN,TOTAL 0.6 mg/dL (0.2-1); BLOOD UREA NITROGEN 149.7 mg/dL (7-18); CALCIUM 8.2 mg/dL (8.5-10.1); CHLORIDE 112 mmol/L (98-107); CO2 18 mmol/L (21-32); CREATININE 4.5 mg/dL (0.55-1.3); GLUCOSE,RANDOM 268 mg/dL (74-106); SGOT/AST 27 U/L (15-37); SGPT/ALT 104 U/L (13-61); SODIUM 152 mmol/L (136-145); TOT PROT 5.9 g/dl (6.4-8.2)
[2021-12-26 17:16] LABS: HEMATOCRIT 20.7 % (35.4-49); MCH 22.4 pg (25.7-33.7); MCHC 29.9 g/dl (32.0-35.9); MEAN CELL VOLUME 74.7 fl (80-96); MEAN PLT VOLUME 9.4 fl (7.5-11.1); PLATELET COUNT 199 10^3/uL (134-434); RBC 2.77 M/mm3 (4.00-5.60); RDW 15.7 % (11.9-15.9); WHITE BLOOD COUNT 14.7 K/mm3 (4.0-10.0)
[2021-12-26 17:25] LABS: INR 2.75 (0.83-1.09)
[2021-12-26 17:27] LABS: HEMOGLOBIN 6.2 GM/dL (11.7-16.9)
[2021-12-26] MEDS: MUPIROCIN 2% TOPICAL OINTMENT FOR DECOLONIZATION NS SCH ×2 (17:42→21:58)
[2021-12-26] MEDS ORDERED: MEROPENEM 500 MG VIAL (RESTRICTED TO ID) IVPB ONE (17:45)
[2021-12-26] MEDS ORDERED: DEXTROSE 5%-WATER 100 ML IVPB ONE (17:45)
[2021-12-26] MEDS: INSULIN SLIDING SCALE (NOVOLOG) 1 VIAL SQ SCH ×2 (17:52→21:58)
[2021-12-26] MEDS: MEROPENEM 500 MG in DEXTROSE 5%-WATER 100 ML IVPB SCH (17:53)
[2021-12-26] MEDS ORDERED: METOCLOPRAMIDE HCL INJECTION 10 MG/2 ML VIAL IVPUSH PRN (19:49)
[2021-12-26] MEDS: ALBUTEROL SO4 0.083% IH SOL 2.5 MG/3 ML VIAL.NEB. NEB SCH (20:35)
[2021-12-26] MEDS: CHLORHEXIDINE GLUCONATE 4% CLEANSER FOR DECOLONIZATION TP SCH (21:58)
[2021-12-26] MEDS: SEVELAMER CARBONATE 0.8 GM POWDER PACKET GT SCH ×2 (21:58→22:03)
[2021-12-27] MEDS: LACTATED RINGERS SOLUTION 1,000 ML/1,000 ML INFUS.BAG IV SCH ×2 (03:18→21:30)
[2021-12-27 03:52] LABS: BASO % 0.2 % (0-2.0); EOS % 0.3 % (0-4.5); HEMATOCRIT 26.9 % (35.4-49); HEMOGLOBIN 8.6 GM/dL (11.7-16.9); LYMPH % 6.1 % (8-40); MCH 24.6 pg (25.7-33.7); MEAN CELL VOLUME 76.9 fl (80-96); MEAN PLT VOLUME 8.4 fl (7.5-11.1); MONO % 8.9 % (3.8-10.2); NEUT % 84.5 % (42.8-82.8); PLATELET COUNT 164 10^3/uL (134-434); RDW 17.1 % (11.9-15.9); WHITE BLOOD COUNT 11.3 K/mm3 (4.0-10.0)
[2021-12-27] MEDS ORDERED: MEROPENEM 500 MG VIAL (RESTRICTED TO ID) IVPB ONE ×2 (06:18→17:33)
[2021-12-27] MEDS ORDERED: DEXTROSE 5%-WATER 100 ML IVPB ONE ×2 (06:19→17:33)
[2021-12-27] MEDS: LEVOTHYROXINE NA 150 MCG TABLET GT SCH (06:20)
[2021-12-27] MEDS: INSULIN SLIDING SCALE (NOVOLOG) 1 VIAL SQ SCH ×4 (06:20→23:38)
[2021-12-27] MEDS: MEROPENEM 500 MG in DEXTROSE 5%-WATER 100 ML IVPB SCH ×2 (06:20→17:55)
[2021-12-27 07:08] LABS: BASO % 0.1 % (0-2.0); EOS % 0.2 % (0-4.5); HEMATOCRIT 30.1 % (35.4-49); HEMOGLOBIN 9.7 GM/dL (11.7-16.9); LYMPH % 6.9 % (8-40); MCH 24.8 pg (25.7-33.7); MCHC 32.3 g/dl (32.0-35.9); MEAN CELL VOLUME 76.7 fl (80-96); MEAN PLT VOLUME 9.3 fl (7.5-11.1); MONO % 9.9 % (3.8-10.2); NEUT % 82.9 % (42.8-82.8); PLATELET COUNT 208 10^3/uL (134-434); RBC 3.92 M/mm3 (4.00-5.60); RDW 16.7 % (11.9-15.9); WHITE BLOOD COUNT 14.2 K/mm3 (4.0-10.0)
[2021-12-27 07:14] LABS: INR 2.76 (0.83-1.09); PROTHROMBIN TIME (PATIENT) 32.1 SEC (9.7-13.0)
[2021-12-27 07:15] LABS: CHLORIDE 114 mmol/L (98-107); SODIUM 151 mmol/L (136-145)
[2021-12-27 07:17] LABS: ACTIVATED PTT 41.5 SECONDS (25.2-36.5)
[2021-12-27 07:20] LABS: CALCIUM 8.5 mg/dL (8.5-10.1)
[2021-12-27 07:21] LABS: ALBUMIN 2.4 g/dl (3.4-5.0); ANION GAP 13 MMOL/L (8-16); CO2 24 mmol/L (21-32); GLUCOSE,RANDOM 136 mg/dL (74-106)
[2021-12-27 07:24] LABS: CREATININE 3.6 mg/dL (0.55-1.3); SGOT/AST 23 U/L (15-37); SGPT/ALT 84 U/L (13-61)
[2021-12-27 07:25] LABS: BILIRUBIN,TOTAL 0.4 mg/dL (0.2-1); TOT PROT 5.8 g/dl (6.4-8.2)
[2021-12-27 07:27] LABS: ALK PHOS 105 U/L (45-117); BLOOD UREA NITROGEN 127.3 mg/dL (7-18)
[2021-12-27] MEDS: ALBUTEROL SO4 0.083% IH SOL 2.5 MG/3 ML VIAL.NEB. NEB SCH ×4 (08:30→20:47)
[2021-12-27] MEDS: MUPIROCIN 2% TOPICAL OINTMENT FOR DECOLONIZATION NS SCH ×2 (09:31→23:39)
[2021-12-27] MEDS: SEVELAMER CARBONATE 0.8 GM POWDER PACKET GT SCH ×2 (09:32→22:58)
[2021-12-27] MEDS ORDERED: PANTOPRAZOLE SODIUM 40 MG VIAL IVPUSH SCH (10:00)
[2021-12-27 13:54] LABS: LACTIC ACID 2.8 mmol/L (0.4-2.0)
[2021-12-27] MEDS: CHLORHEXIDINE GLUCONATE 4% CLEANSER FOR DECOLONIZATION TP SCH (22:58)
[2021-12-28] MEDS: LEVOTHYROXINE NA 150 MCG TABLET GT SCH (06:17)
[2021-12-28] MEDS: INSULIN SLIDING SCALE (NOVOLOG) 1 VIAL SQ SCH ×4 (06:34→23:02)
[2021-12-28 06:47] LABS: BASO % 0.1 % (0-2.0); EOS % 0.7 % (0-4.5); HEMATOCRIT 29.3 % (35.4-49); HEMOGLOBIN 9.4 GM/dL (11.7-16.9); LYMPH % 7.7 % (8-40); MCH 24.7 pg (25.7-33.7); MCHC 32.1 g/dl (32.0-35.9); MEAN CELL VOLUME 77.1 fl (80-96); MEAN PLT VOLUME 9.1 fl (7.5-11.1); MONO % 10.1 % (3.8-10.2); NEUT % 81.4 % (42.8-82.8); PLATELET COUNT 218 10^3/uL (134-434); RDW 16.9 % (11.9-15.9); WHITE BLOOD COUNT 11.7 K/mm3 (4.0-10.0)
[2021-12-28 06:55] LABS: INR 1.7 (0.83-1.09); PROTHROMBIN TIME (PATIENT) 19.7 SEC (9.7-13.0)
[2021-12-28] MEDS ORDERED: MEROPENEM 500 MG VIAL (RESTRICTED TO ID) IVPB ONE ×2 (07:00→17:52)
[2021-12-28] MEDS ORDERED: DEXTROSE 5%-WATER - 50 ML IVPB ONE ×2 (07:01→17:52)
[2021-12-28] MEDS: MEROPENEM 500 MG in DEXTROSE 5%-WATER - 50 ML IVPB SCH ×2 (07:02→18:09)
[2021-12-28 07:09] LABS: CHLORIDE 119 mmol/L (98-107); SODIUM 155 mmol/L (136-145)
[2021-12-28 07:12] LABS: ALBUMIN 2.4 g/dl (3.4-5.0); ANION GAP 8 MMOL/L (8-16); CALCIUM 8.4 mg/dL (8.5-10.1); CO2 28 mmol/L (21-32); GLUCOSE,RANDOM 151 mg/dL (74-106); MAGNESIUM 2.9 mg/dL (1.8-2.4)
[2021-12-28 07:15] LABS: CREATININE 2.5 mg/dL (0.55-1.3); PHOSPHOROUS 3.3 mg/dL (2.5-4.9); SGOT/AST 61 U/L (15-37); SGPT/ALT 99 U/L (13-61)
[2021-12-28 07:17] LABS: BILIRUBIN,TOTAL 0.5 mg/dL (0.2-1); TOT PROT 6.2 g/dl (6.4-8.2)
[2021-12-28 07:20] LABS: ALK PHOS 136 U/L (45-117); BLOOD UREA NITROGEN 105.4 mg/dL (7-18)
[2021-12-28] MEDS: ALBUTEROL SO4 0.083% IH SOL 2.5 MG/3 ML VIAL.NEB. NEB SCH ×3 (07:55→20:23)
[2021-12-28] MEDS ORDERED: POTASSIUM CHLORIDE ORAL LIQUID 20 MEQ/15 ML GT ONE (09:24)
[2021-12-28] MEDS ORDERED: LACTATED RINGERS SOLUTION 1,000 ML/1,000 ML INFUS.BAG IV SCH (09:28)
[2021-12-28] MEDS ORDERED: EPOETIN ALFA-EPBX 4,000 UNIT/ML VIAL SQ SCH (09:28)
[2021-12-28] MEDS ORDERED: METOCLOPRAMIDE HCL INJECTION 10 MG/2 ML VIAL IVPUSH PRN (09:28)
[2021-12-28] MEDS ORDERED: KCL 10 MEQ IVPB 10 MEQ/100 ML INFUS.BAG IVPB SCH (09:30)
[2021-12-28] MEDS ORDERED: SODIUM CHLORIDE 0.45% 1,000 ML IV SCH (10:00)
[2021-12-28] MEDS: POTASSIUM CHLORIDE ORAL LIQUID 20 MEQ/15 ML GT SCH ×2 (10:29→23:02)
[2021-12-28] MEDS: SEVELAMER CARBONATE 0.8 GM POWDER PACKET GT SCH ×2 (10:29→18:08)
[2021-12-28] MEDS: PANTOPRAZOLE SODIUM 40 MG VIAL IVPUSH SCH (10:29)
[2021-12-28] MEDS: MEROPENEM 500 MG in DEXTROSE 5%-WATER 100 ML IVPB SCH (10:30)
[2021-12-28] MEDS: EPOETIN ALFA-EPBX 4,000 UNIT/ML VIAL SQ SCH (10:30)
[2021-12-28 10:31] LABS: LACTIC ACID 3.1 mmol/L (0.4-2.0)
[2021-12-28] MEDS: POLYETHYLENE GLYCOL (HEALTHYLAX) 3350 17 GM PACKET GT SCH ×2 (13:50→23:02)
[2021-12-28 21:25] LABS: LACTIC ACID 2.3 mmol/L (0.4-2.0)
[2021-12-28] MEDS ORDERED: SODIUM CHLORIDE 500 ML IV STA (22:57)
[2021-12-29] MEDS ORDERED: MEROPENEM 500 MG VIAL (RESTRICTED TO ID) IVPB ONE (06:40)
[2021-12-29] MEDS ORDERED: DEXTROSE 5%-WATER - 50 ML IVPB ONE (06:40)
[2021-12-29] MEDS: POLYETHYLENE GLYCOL (HEALTHYLAX) 3350 17 GM PACKET GT SCH ×3 (06:45→21:48)
[2021-12-29] MEDS: MEROPENEM 500 MG in DEXTROSE 5%-WATER - 50 ML IVPB SCH (06:45)
[2021-12-29] MEDS: INSULIN SLIDING SCALE (NOVOLOG) 1 VIAL SQ SCH ×4 (06:46→22:30)
[2021-12-29] MEDS: LEVOTHYROXINE NA 150 MCG TABLET GT SCH (06:46)
[2021-12-29 07:01] LABS: BASO % 0.1 % (0-2.0); EOS % 1.5 % (0-4.5); HEMATOCRIT 28.9 % (35.4-49); HEMOGLOBIN 9.1 GM/dL (11.7-16.9); LYMPH % 11.9 % (8-40); MCH 24.6 pg (25.7-33.7); MCHC 31.5 g/dl (32.0-35.9); MEAN CELL VOLUME 78.1 fl (80-96); MEAN PLT VOLUME 9.4 fl (7.5-11.1); MONO % 6.6 % (3.8-10.2); NEUT % 79.9 % (42.8-82.8); PLATELET COUNT 205 10^3/uL (134-434); RDW 16.8 % (11.9-15.9); WHITE BLOOD COUNT 9.6 K/mm3 (4.0-10.0)
[2021-12-29 07:10] LABS: INR 1.22 (0.83-1.09); PROTHROMBIN TIME (PATIENT) 14.1 SEC (9.7-13.0)
[2021-12-29 07:13] LABS: ACTIVATED PTT 36.2 SECONDS (25.2-36.5)
[2021-12-29 07:29] LABS: CALCIUM 8.6 mg/dL (8.5-10.1)
[2021-12-29 07:30] LABS: ALBUMIN 2.4 g/dl (3.4-5.0); MAGNESIUM 3.1 mg/dL (1.8-2.4)
[2021-12-29 07:33] LABS: CREATININE 1.9 mg/dL (0.55-1.3); PHOSPHOROUS 2.2 mg/dL (2.5-4.9)
[2021-12-29 07:34] LABS: BILIRUBIN,TOTAL 0.5 mg/dL (0.2-1)
[2021-12-29 07:39] LABS: BLOOD UREA NITROGEN 78.6 mg/dL (7-18)
[2021-12-29] MEDS ORDERED: DEXTROSE 5%-WATER - 1,000 ML IV SCH (07:45)
[2021-12-29] MEDS: ALBUTEROL SO4 0.083% IH SOL 2.5 MG/3 ML VIAL.NEB. NEB SCH ×3 (08:25→20:30)
[2021-12-29] MEDS ORDERED: SODIUM CHLORIDE 250 ML IV STA (09:18)
[2021-12-29] MEDS ORDERED: D5-1/2NS+40 MEQ KCL - 40 MEQ/1,000 ML INFUS.BAG IV SCH (09:30)
[2021-12-29] MEDS: MINERAL OIL ENEMA 133 ML ENEMA RC SCH (10:02)
[2021-12-29] MEDS: POTASSIUM CHLORIDE ORAL LIQUID 20 MEQ/15 ML GT SCH (10:02)
[2021-12-29] MEDS: SEVELAMER CARBONATE 0.8 GM POWDER PACKET GT SCH ×2 (10:02→17:32)
[2021-12-29] MEDS: PANTOPRAZOLE SODIUM 40 MG VIAL IVPUSH SCH (10:02)
[2021-12-29 11:17] LABS: CALCIUM 8.5 mg/dL (8.5-10.1)
[2021-12-29 11:18] LABS: BLOOD UREA NITROGEN 74.3 mg/dL (7-18)
[2021-12-29 11:21] LABS: CREATININE 1.7 mg/dL (0.55-1.3)
[2021-12-29] MEDS: CEFTAZIDIME/AVIBACTAM 1.25 GM in DEXTROSE 5%-WATER - 100 ML IVPB SCH (17:32)
[2021-12-29] MEDS: EPOETIN ALFA-EPBX 4,000 UNIT/ML VIAL SQ SCH (19:51)
[2021-12-30] MEDS: CEFTAZIDIME/AVIBACTAM 1.25 GM in DEXTROSE 5%-WATER - 100 ML IVPB SCH ×3 (01:15→17:44)
[2021-12-30] MEDS: POLYETHYLENE GLYCOL (HEALTHYLAX) 3350 17 GM PACKET GT SCH ×3 (06:16→22:04)
[2021-12-30] MEDS: LEVOTHYROXINE NA 150 MCG TABLET GT SCH (06:17)
[2021-12-30] MEDS: INSULIN SLIDING SCALE (NOVOLOG) 1 VIAL SQ SCH ×4 (06:27→22:08)
[2021-12-30] MEDS: ALBUTEROL SO4 0.083% IH SOL 2.5 MG/3 ML VIAL.NEB. NEB SCH ×3 (08:50→15:07)
[2021-12-30] MEDS: SEVELAMER CARBONATE 0.8 GM POWDER PACKET GT SCH ×2 (10:12→17:39)
[2021-12-30] MEDS: PANTOPRAZOLE SODIUM 40 MG VIAL IVPUSH SCH (10:12)
[2021-12-30 10:31] LABS: BASO % 0.2 % (0-2.0); EOS % 2.7 % (0-4.5); HEMATOCRIT 27.8 % (35.4-49); HEMOGLOBIN 8.9 GM/dL (11.7-16.9); MCH 25.3 pg (25.7-33.7); MEAN CELL VOLUME 78.9 fl (80-96); MEAN PLT VOLUME 9.1 fl (7.5-11.1); MONO % 6.6 % (3.8-10.2); NEUT % 77.5 % (42.8-82.8); PLATELET COUNT 182 10^3/uL (134-434); RBC 3.53 M/mm3 (4.00-5.60); WHITE BLOOD COUNT 10.5 K/mm3 (4.0-10.0)
[2021-12-30 10:36] LABS: INR 1.19 (0.83-1.09); PROTHROMBIN TIME (PATIENT) 13.7 SEC (9.7-13.0)
[2021-12-30 10:39] LABS: ACTIVATED PTT 38.5 SECONDS (25.2-36.5)
[2021-12-30 10:55] LABS: ALBUMIN 2.5 g/dl (3.4-5.0); BLOOD UREA NITROGEN 51.8 mg/dL (7-18); CALCIUM 8.4 mg/dL (8.5-10.1)
[2021-12-30 10:56] LABS: MAGNESIUM 2.9 mg/dL (1.8-2.4)
[2021-12-30 10:58] LABS: CREATININE 1.6 mg/dL (0.55-1.3); PHOSPHOROUS 2.1 mg/dL (2.5-4.9)
[2021-12-30 10:59] LABS: BILIRUBIN,TOTAL 0.4 mg/dL (0.2-1); TOT PROT 6.2 g/dl (6.4-8.2)
[2021-12-30] MEDS ORDERED: DEXTROSE 5%-WATER - 1,000 ML IV SCH (13:00)
[2021-12-30] MEDS: MINERAL OIL ENEMA 133 ML ENEMA RC SCH (13:45)
[2021-12-31] MEDS: CEFTAZIDIME/AVIBACTAM 1.25 GM in DEXTROSE 5%-WATER - 100 ML IVPB SCH ×3 (01:15→18:11)
[2021-12-31] MEDS: POLYETHYLENE GLYCOL (HEALTHYLAX) 3350 17 GM PACKET GT SCH (06:10)
[2021-12-31] MEDS: INSULIN SLIDING SCALE (NOVOLOG) 1 VIAL SQ SCH ×4 (06:11→22:06)
[2021-12-31] MEDS: LEVOTHYROXINE NA 150 MCG TABLET GT SCH (06:13)
[2021-12-31] MEDS: ALBUTEROL SO4 0.083% IH SOL 2.5 MG/3 ML VIAL.NEB. NEB SCH ×4 (08:40→20:05)
[2021-12-31] MEDS: PANTOPRAZOLE SODIUM 40 MG VIAL IVPUSH SCH (09:47)
[2021-12-31] MEDS: SEVELAMER CARBONATE 0.8 GM POWDER PACKET GT SCH (09:48)
[2021-12-31 09:58] LABS: BASO % 0.3 % (0-2.0); EOS % 3.2 % (0-4.5); HEMOGLOBIN 8.2 GM/dL (11.7-16.9); LYMPH % 11.4 % (8-40); MCH 24.9 pg (25.7-33.7); MCHC 31.7 g/dl (32.0-35.9); MEAN CELL VOLUME 78.5 fl (80-96); MEAN PLT VOLUME 8.9 fl (7.5-11.1); MONO % 4.9 % (3.8-10.2); NEUT % 80.2 % (42.8-82.8); PLATELET COUNT 156 10^3/uL (134-434); RBC 3.31 M/mm3 (4.00-5.60); RDW 18.3 % (11.9-15.9); WHITE BLOOD COUNT 10.7 K/mm3 (4.0-10.0)
[2021-12-31 10:07] LABS: INR 1.12 (0.83-1.09); PROTHROMBIN TIME (PATIENT) 12.9 SEC (9.7-13.0)
[2021-12-31 10:10] LABS: ACTIVATED PTT 33.5 SECONDS (25.2-36.5)
[2021-12-31 10:24] LABS: ALBUMIN 2.2 g/dl (3.4-5.0); BLOOD UREA NITROGEN 35.5 mg/dL (7-18)
[2021-12-31 10:25] LABS: MAGNESIUM 2.3 mg/dL (1.8-2.4)
[2021-12-31 10:26] LABS: CALCIUM 8.1 mg/dL (8.5-10.1)
[2021-12-31 10:27] LABS: CREATININE 1.3 mg/dL (0.55-1.3)
[2021-12-31 10:28] LABS: PHOSPHOROUS 1.8 mg/dL (2.5-4.9)
[2021-12-31 10:29] LABS: BILIRUBIN,TOTAL 0.8 mg/dL (0.2-1); TOT PROT 5.6 g/dl (6.4-8.2)
[2021-12-31] MEDS ORDERED: DEXTROSE 5%-WATER - 1,000 ML IV SCH (12:30)
[2021-12-31] MEDS ORDERED: NAPH,MB-DB/K PH,MBDB POWDER PACKET PO ONE (13:36)
[2021-12-31] MEDS ORDERED: POLYETHYLENE GLYCOL (HEALTHYLAX) 3350 17 GM PACKET PO SCH (16:00)
[2021-12-31] MEDS ORDERED: POLYETHYLENE GLYCOL (HEALTHYLAX) 3350 17 GM PACKET PO ONE (16:00)
[2022-01-01] MEDS: CEFTAZIDIME/AVIBACTAM 1.25 GM in DEXTROSE 5%-WATER - 100 ML IVPB SCH ×3 (03:03→16:59)
[2022-01-01] MEDS: INSULIN SLIDING SCALE (NOVOLOG) 1 VIAL SQ SCH ×4 (06:02→22:20)
[2022-01-01] MEDS: LEVOTHYROXINE NA 150 MCG TABLET GT SCH (06:03)
[2022-01-01] MEDS: ALBUTEROL SO4 0.083% IH SOL 2.5 MG/3 ML VIAL.NEB. NEB SCH ×4 (08:04→20:10)
[2022-01-01 10:11] LABS: BASO % 0.3 % (0-2.0); EOS % 3.3 % (0-4.5); HEMATOCRIT 24.5 % (35.4-49); HEMOGLOBIN 7.8 GM/dL (11.7-16.9); LYMPH % 13.1 % (8-40); MCH 24.8 pg (25.7-33.7); MCHC 32.1 g/dl (32.0-35.9); MEAN CELL VOLUME 77.3 fl (80-96); MEAN PLT VOLUME 9.5 fl (7.5-11.1); MONO % 4.6 % (3.8-10.2); NEUT % 78.7 % (42.8-82.8); PLATELET COUNT 157 10^3/uL (134-434); RBC 3.16 M/mm3 (4.00-5.60); RDW 18.6 % (11.9-15.9); WHITE BLOOD COUNT 8.9 K/mm3 (4.0-10.0)
[2022-01-01 10:32] LABS: ACTIVATED PTT 32.7 SECONDS (25.2-36.5); INR 1.08 (0.83-1.09); PROTHROMBIN TIME (PATIENT) 12.4 SEC (9.7-13.0)
[2022-01-01 10:37] LABS: ALBUMIN 2.2 g/dl (3.4-5.0); BLOOD UREA NITROGEN 30.3 mg/dL (7-18); MAGNESIUM 2.1 mg/dL (1.8-2.4)
[2022-01-01 10:40] LABS: CREATININE 1.2 mg/dL (0.55-1.3); PHOSPHOROUS 2.9 mg/dL (2.5-4.9)
[2022-01-01 10:41] LABS: BILIRUBIN,TOTAL 0.4 mg/dL (0.2-1); TOT PROT 5.8 g/dl (6.4-8.2)
[2022-01-01] MEDS: PANTOPRAZOLE SODIUM 40 MG VIAL IVPUSH SCH (11:01)
[2022-01-01] MEDS ORDERED: ATROPINE SULFATE 1 MG/10 ML DISP.SYRIN IVPUSH PRN (12:14)
[2022-01-01] MEDS ORDERED: POTASSIUM CHLORIDE ORAL LIQUID 20 MEQ/15 ML GT ONE (16:22)
[2022-01-01 17:00] VITALS: BMI 22.7
[2022-01-01 20:16] LABS: BASO % 0.3 % (0-2.0); EOS % 3.5 % (0-4.5); HEMATOCRIT 23.7 % (35.4-49); HEMOGLOBIN 7.6 GM/dL (11.7-16.9); LYMPH % 14.4 % (8-40); MCH 24.8 pg (25.7-33.7); MCHC 32.1 g/dl (32.0-35.9); MEAN CELL VOLUME 77.4 fl (80-96); MEAN PLT VOLUME 9.2 fl (7.5-11.1); MONO % 5.1 % (3.8-10.2); NEUT % 76.7 % (42.8-82.8); PLATELET COUNT 147 10^3/uL (134-434); RBC 3.07 M/mm3 (4.00-5.60); RDW 18.1 % (11.9-15.9)
[2022-01-01] MEDS: POLYETHYLENE GLYCOL (HEALTHYLAX) 3350 17 GM PACKET GT SCH (22:20)
[2022-01-02] MEDS: CEFTAZIDIME/AVIBACTAM 1.25 GM in DEXTROSE 5%-WATER - 100 ML IVPB SCH ×3 (02:03→18:26)
[2022-01-02] MEDS: INSULIN SLIDING SCALE (NOVOLOG) 1 VIAL SQ SCH ×3 (06:10→16:57)
[2022-01-02] MEDS: LEVOTHYROXINE NA 150 MCG TABLET GT SCH (06:11)
[2022-01-02] MEDS: ALBUTEROL SO4 0.083% IH SOL 2.5 MG/3 ML VIAL.NEB. NEB SCH ×2 (08:49→20:06)
[2022-01-02 10:48] LABS: BASO % 0.4 % (0-2.0); EOS % 3.4 % (0-4.5); HEMATOCRIT 26.5 % (35.4-49); HEMOGLOBIN 8.4 GM/dL (11.7-16.9); LYMPH % 12.1 % (8-40); MCH 25.2 pg (25.7-33.7); MCHC 31.8 g/dl (32.0-35.9); MEAN CELL VOLUME 79.4 fl (80-96); MEAN PLT VOLUME 9.6 fl (7.5-11.1); MONO % 5.4 % (3.8-10.2); NEUT % 78.7 % (42.8-82.8); PLATELET COUNT 158 10^3/uL (134-434); RBC 3.33 M/mm3 (4.00-5.60); RDW 18.7 % (11.9-15.9); WHITE BLOOD COUNT 9.4 K/mm3 (4.0-10.0)
[2022-01-02 10:50] LABS: BLOOD UREA NITROGEN 24.3 mg/dL (7-18); CALCIUM 8.1 mg/dL (8.5-10.1)
[2022-01-02 10:51] LABS: MAGNESIUM 2.1 mg/dL (1.8-2.4)
[2022-01-02 10:53] LABS: CREATININE 1.1 mg/dL (0.55-1.3); PHOSPHOROUS 2.9 mg/dL (2.5-4.9)
[2022-01-02] MEDS: POLYETHYLENE GLYCOL (HEALTHYLAX) 3350 17 GM PACKET GT SCH ×2 (11:00→22:41)
[2022-01-02] MEDS: PANTOPRAZOLE SODIUM 40 MG VIAL IVPUSH SCH (11:00)
[2022-01-03] MEDS: CEFTAZIDIME/AVIBACTAM 1.25 GM in DEXTROSE 5%-WATER - 100 ML IVPB SCH ×3 (02:04→17:58)
[2022-01-03] MEDS: LEVOTHYROXINE NA 150 MCG TABLET GT SCH (06:22)
[2022-01-03] MEDS: INSULIN SLIDING SCALE (NOVOLOG) 1 VIAL SQ SCH ×2 (06:22→16:22)
[2022-01-03] MEDS: ALBUTEROL SO4 0.083% IH SOL 2.5 MG/3 ML VIAL.NEB. NEB SCH ×5 (08:09→20:27)
[2022-01-03 09:48] LABS: BASO % 0.5 % (0-2.0); HEMOGLOBIN 7.5 GM/dL (11.7-16.9); LYMPH % 12.5 % (8-40); MCHC 32.5 g/dl (32.0-35.9); MEAN CELL VOLUME 76.9 fl (80-96); MEAN PLT VOLUME 9.6 fl (7.5-11.1); MONO % 5.7 % (3.8-10.2); NEUT % 78.3 % (42.8-82.8); PLATELET COUNT 134 10^3/uL (134-434); RDW 18.2 % (11.9-15.9); WHITE BLOOD COUNT 6.8 K/mm3 (4.0-10.0)
[2022-01-03] MEDS: PANTOPRAZOLE SODIUM 40 MG VIAL IVPUSH SCH (10:13)
[2022-01-03] MEDS: POLYETHYLENE GLYCOL (HEALTHYLAX) 3350 17 GM PACKET GT SCH ×2 (10:14→22:15)
[2022-01-03 10:48] LABS: CALCIUM 8.1 mg/dL (8.5-10.1)
[2022-01-03 10:49] LABS: MAGNESIUM 1.9 mg/dL (1.8-2.4)
[2022-01-03 10:52] LABS: PHOSPHOROUS 2.9 mg/dL (2.5-4.9)
[2022-01-03 19:52] LABS: PH,URINE 5.5 (5.0-8.0); URINE APPEARANCE CLEAR; URINE BILIRUBIN NEGATIVE (NEGATIVE); URINE COLOR YELLOW; URINE GLUCOSE (UA) NEGATIVE (NEGATIVE); URINE KETONE NEGATIVE (NEGATIVE); URINE LEUK ESTERASE NEGATIVE (NEGATIVE); URINE NITRITE NEGATIVE (NEGATIVE); URINE PROTEIN NEGATIVE (NEGATIVE); URINE UROBILINOGEN 0.2 mg/dL (0.2-1.0)
[2022-01-03] MEDS: HEPARIN NA (PORCINE) 5,000 UNITS/ML 1ML VIAL SQ SCH (22:15)
[2022-01-04] MEDS: CEFTAZIDIME/AVIBACTAM 1.25 GM in DEXTROSE 5%-WATER - 100 ML IVPB SCH ×3 (02:52→17:53)
[2022-01-04] MEDS: HEPARIN NA (PORCINE) 5,000 UNITS/ML 1ML VIAL SQ SCH ×3 (05:45→21:48)
[2022-01-04] MEDS: INSULIN SLIDING SCALE (NOVOLOG) 1 VIAL SQ SCH ×2 (06:01→16:32)
[2022-01-04] MEDS: LEVOTHYROXINE NA 150 MCG TABLET GT SCH (06:02)
[2022-01-04] MEDS: POLYETHYLENE GLYCOL (HEALTHYLAX) 3350 17 GM PACKET GT SCH ×2 (09:01→21:56)
[2022-01-04] MEDS: PANTOPRAZOLE SODIUM 40 MG VIAL IVPUSH SCH (09:02)
[2022-01-04 09:20] LABS: BASO % 0.3 % (0-2.0); EOS % 1.7 % (0-4.5); HEMATOCRIT 23.5 % (35.4-49); HEMOGLOBIN 7.5 GM/dL (11.7-16.9); LYMPH % 9.6 % (8-40); MCH 24.5 pg (25.7-33.7); MCHC 31.7 g/dl (32.0-35.9); MEAN CELL VOLUME 77.3 fl (80-96); MEAN PLT VOLUME 9.6 fl (7.5-11.1); MONO % 6.9 % (3.8-10.2); NEUT % 81.5 % (42.8-82.8); PLATELET COUNT 166 10^3/uL (134-434); RBC 3.04 M/mm3 (4.00-5.60); RDW 18.4 % (11.9-15.9); WHITE BLOOD COUNT 8.4 K/mm3 (4.0-10.0)
[2022-01-04] MEDS: ALBUTEROL SO4 0.083% IH SOL 2.5 MG/3 ML VIAL.NEB. NEB SCH ×3 (09:39→20:00)
[2022-01-04 10:06] LABS: CALCIUM 8.2 mg/dL (8.5-10.1)
[2022-01-04 10:07] LABS: BLOOD UREA NITROGEN 18.9 mg/dL (7-18)
[2022-01-04 10:08] LABS: PHOSPHOROUS 2.6 mg/dL (2.5-4.9)
[2022-01-04 10:10] LABS: MAGNESIUM 1.9 mg/dL (1.8-2.4)
[2022-01-04 19:37] LABS: BASO % 0.5 % (0-2.0); EOS % 2.3 % (0-4.5); HEMATOCRIT 22.6 % (35.4-49); HEMOGLOBIN 7.4 GM/dL (11.7-16.9); LYMPH % 16.7 % (8-40); MCH 25.1 pg (25.7-33.7); MCHC 32.9 g/dl (32.0-35.9); MEAN CELL VOLUME 76.2 fl (80-96); MEAN PLT VOLUME 9.6 fl (7.5-11.1); MONO % 8.7 % (3.8-10.2); NEUT % 71.8 % (42.8-82.8); PLATELET COUNT 167 10^3/uL (134-434); RBC 2.97 M/mm3 (4.00-5.60); RDW 18.1 % (11.9-15.9); WHITE BLOOD COUNT 6.9 K/mm3 (4.0-10.0)
[2022-01-05] MEDS: CEFTAZIDIME/AVIBACTAM 1.25 GM in DEXTROSE 5%-WATER - 100 ML IVPB SCH ×2 (02:38→09:57)
[2022-01-05] MEDS: LEVOTHYROXINE NA 150 MCG TABLET GT SCH (06:05)
[2022-01-05] MEDS: HEPARIN NA (PORCINE) 5,000 UNITS/ML 1ML VIAL SQ SCH ×2 (06:05→14:50)
[2022-01-05] MEDS: INSULIN SLIDING SCALE (NOVOLOG) 1 VIAL SQ SCH ×2 (06:15→16:28)
[2022-01-05] MEDS: ALBUTEROL SO4 0.083% IH SOL 2.5 MG/3 ML VIAL.NEB. NEB SCH ×4 (08:09→20:46)
[2022-01-05] MEDS: POLYETHYLENE GLYCOL (HEALTHYLAX) 3350 17 GM PACKET GT SCH (09:58)
[2022-01-05] MEDS: PANTOPRAZOLE SODIUM 40 MG VIAL IVPUSH SCH (09:59)
[2022-01-05 10:02] LABS: BASO % 0.8 % (0-2.0); EOS % 3.4 % (0-4.5); HEMATOCRIT 21.8 % (35.4-49); LYMPH % 16.6 % (8-40); MCH 24.8 pg (25.7-33.7); MCHC 32.2 g/dl (32.0-35.9); MEAN CELL VOLUME 76.8 fl (80-96); MEAN PLT VOLUME 9.6 fl (7.5-11.1); MONO % 8.3 % (3.8-10.2); NEUT % 70.9 % (42.8-82.8); PLATELET COUNT 170 10^3/uL (134-434); RBC 2.84 M/mm3 (4.00-5.60); RDW 18.7 % (11.9-15.9); WHITE BLOOD COUNT 5.6 K/mm3 (4.0-10.0)
[2022-01-05 10:24] LABS: CALCIUM 8.2 mg/dL (8.5-10.1)
[2022-01-05 10:25] LABS: BLOOD UREA NITROGEN 17.3 mg/dL (7-18); MAGNESIUM 1.9 mg/dL (1.8-2.4)
[2022-01-05 10:28] LABS: PHOSPHOROUS 3.2 mg/dL (2.5-4.9)
[2022-01-05 10:29] LABS: BILIRUBIN,TOTAL 0.4 mg/dL (0.2-1); TOT PROT 5.6 g/dl (6.4-8.2)
[2022-01-05 18:03] VITALS: BP 109/66; PULSE 57; TEMP 98.2
== END 2022-01-05 21:52 | disposition short-term general hospital (02) | DRG 870 ==
LOC: JER 08:53 → JERBED 12:37 → JICU 15:01 → J5S 12-30 01:02
PROVIDERS: ADMIT Internal Medicine Pulmonary Disease; ATTEND Internal Medicine
PROC: 5A1955Z Respiratory Ventilation, Greater than 96 Consecutive Hours (ICD-10-PCS; principal; 2021-12-26)
DX: A41.89 Other specified sepsis (principal); J18.9 Pneumonia, unspecified organism; G93.41 Metabolic encephalopathy; N18.6 End stage renal disease; E87.0 Hyperosmolality and hypernatremia; J96.11 Chronic respiratory failure with hypoxia; N17.9 Acute kidney failure, unspecified; E87.2 Acidosis; D68.9 Coagulation defect, unspecified; G93.1 Anoxic brain damage, not elsewhere classified; J98.11 Atelectasis; I13.2 Hypertensive heart and chronic kidney disease with heart failure and with stage 5 chronic kidney disease, or end stage renal disease; I50.32 Chronic diastolic (congestive) heart failure; I48.91 Unspecified atrial fibrillation; E86.0 Dehydration; R91.1 Solitary pulmonary nodule; K21.9 Gastro-esophageal reflux disease without esophagitis; E03.9 Hypothyroidism, unspecified; I44.0 Atrioventricular block, first degree; E11.22 Type 2 diabetes mellitus with diabetic chronic kidney disease; D64.9 Anemia, unspecified; R19.5 Other fecal abnormalities; L89.152 Pressure ulcer of sacral region, stage 2; Z86.73 Personal history of transient ischemic attack (TIA), and cerebral infarction without residual deficits; I25.2 Old myocardial infarction; Z93.0 Tracheostomy status; Z93.1 Gastrostomy status; Z99.2 Dependence on renal dialysis; Z43.4 Encounter for attention to other artificial openings of digestive tract
CPT/HCPCS: 36415; 36430; 36600; 70450-TC; 71045-TC-FY; 74176-TC; 80048; 80053; 81003; 82272; 82550; 82607; 82728; 82803; 82962; 83540; 83550; 83605; 83735; 84100; 84484; 85025; 85027; 85610; 85730; 86850; 86900; 86901; 86922; 87040; 87086; 87184; 87186; 87804; 93005; 93010; 93225; 93226; 93306-TC; 94002; 94640; 99285-25; C9803; G0480; J0131; J1644; P9017; P9038; P9058; U0003; U0005

== ENCOUNTER 2022-09-21 20:31 | Inpatient (IN) | payer OTHER ==
[2022-09-21 21:02] VITALS: BMI 25.1
[2022-09-21 22:32] LABS: BASO % 0.6 % (0-2.0); EOS % 1.4 % (0-4.5); HEMOGLOBIN 11.6 GM/dL (11.7-16.9); LYMPH % 18.7 % (8-40); MCH 23.1 pg (25.7-33.7); MCHC 32.1 g/dl (32.0-35.9); MEAN CELL VOLUME 71.9 fl (80-96); MEAN PLT VOLUME 9.5 fl (7.5-11.1); MONO % 6.5 % (3.8-10.2); NEUT % 72.8 % (42.8-82.8); PLATELET COUNT 214 10^3/uL (134-434); RBC 5.01 M/mm3 (4.00-5.60); RDW 14.1 % (11.9-15.9)
[2022-09-21 22:50] LABS: ALBUMIN 3.4 g/dl (3.4-5.0)
[2022-09-21 22:52] LABS: BLOOD UREA NITROGEN 27.6 mg/dL (7-18); CALCIUM 8.9 mg/dL (8.5-10.1); MAGNESIUM 2.2 mg/dL (1.8-2.4)
[2022-09-21 22:53] LABS: PHOSPHOROUS 3.8 mg/dL (2.5-4.9)
[2022-09-21 22:56] LABS: BILIRUBIN,TOTAL 0.3 mg/dL (0.2-1); TOT PROT 7.9 g/dl (6.4-8.2)
[2022-09-22] MEDS ORDERED: CEFTRIAXONE 1 GM in DEXTROSE 5%-WATER - 100 ML IVPB ONE (01:52)
[2022-09-22] MEDS ORDERED: AZITHROMYCIN IVPB 500 MG in DEXTROSE 5%-WATER - 250 ML IVPB ONE (01:52)
[2022-09-22] MEDS ORDERED: AZITHROMYCIN IVPB 500 MG/250 ML BAG IVPB ONE (02:18)
[2022-09-22] MEDS ORDERED: CEFTRIAXONE 1 GM/50 ML BAG ONE (02:18)
[2022-09-22] MEDS ORDERED: VANCOMYCIN 1 GM/200 ML PREMIX BAG IVPB ONE (17:27)
[2022-09-22] MEDS ORDERED: ACETAMINOPHEN 500 MG TABLET (FP) GT PRN (17:34)
[2022-09-22] MEDS ORDERED: VANCOMYCIN/WATER FOR INJ (PEG) 1,000 MG/200 ML BAG IVPB ONE ×4 (17:38→18:00)
[2022-09-22] MEDS ORDERED: DEXTROSE 5%-NORMAL SALINE 1,000 ML IV SCH (17:45)
[2022-09-22] MEDS ORDERED: WARFARIN NA 3 MG TABLET GT SCH ×2 (18:00→18:30)
[2022-09-22] MEDS ORDERED: WARFARIN NA 1 MG TABLET ONE (18:01)
[2022-09-22] MEDS ORDERED: WARFARIN NA 5 MG TABLET ONE (18:01)
[2022-09-22] MEDS ORDERED: PANTOPRAZOLE SODIUM 40 MG VIAL ONE (18:02)
[2022-09-22] MEDS: PANTOPRAZOLE SODIUM 40 MG VIAL IVPUSH SCH (18:22)
[2022-09-22 20:24] LABS: BASO % 0.5 % (0-2.0); EOS % 1.3 % (0-4.5); HEMATOCRIT 32.7 % (35.4-49); HEMOGLOBIN 10.4 GM/dL (11.7-16.9); LYMPH % 14.2 % (8-40); MCH 23.1 pg (25.7-33.7); MCHC 31.8 g/dl (32.0-35.9); MEAN CELL VOLUME 72.5 fl (80-96); MONO % 6.1 % (3.8-10.2); NEUT % 77.9 % (42.8-82.8); PLATELET COUNT 203 10^3/uL (134-434); RBC 4.52 M/mm3 (4.00-5.60); RDW 14.1 % (11.9-15.9); WHITE BLOOD COUNT 11.5 K/mm3 (4.0-10.0)
[2022-09-22 20:34] LABS: INR 1.26 (0.83-1.09); PROTHROMBIN TIME (PATIENT) 14.5 SEC (9.7-13.0)
[2022-09-22 20:36] LABS: ACTIVATED PTT 40.5 SECONDS (25.2-36.5)
[2022-09-22 20:51] LABS: BLOOD UREA NITROGEN 24.1 mg/dL (7-18); CALCIUM 8.9 mg/dL (8.5-10.1)
[2022-09-22] MEDS: ALBUTEROL SO4 0.083% IH SOL 2.5 MG/3 ML VIAL.NEB. NEB SCH (20:53)
[2022-09-22 20:55] LABS: PHOSPHOROUS 3.3 mg/dL (2.5-4.9)
[2022-09-22] MEDS: SEVELAMER CARBONATE 0.8 GM POWDER PACKET GT SCH (21:54)
[2022-09-22] MEDS: CEFTAZIDIME/AVIBACTAM 1.25 GM in DEXTROSE 5%-WATER - 100 ML IVPB SCH (21:55)
[2022-09-22] MEDS: ATORVASTATIN CA 80 MG TABLET (FP) PEG SCH (21:55)
[2022-09-22] MEDS: INSULIN SLIDING SCALE (NOVOLOG) 1 VIAL SQ SCH (22:12)
[2022-09-22] MEDS: SCOPOLAMINE HYDROBROMIDE 1 PATCH PATCH.TD72 TD SCH (22:12)
[2022-09-23] MEDS: CEFTAZIDIME/AVIBACTAM 1.25 GM in DEXTROSE 5%-WATER - 100 ML IVPB SCH ×3 (03:18→18:50)
[2022-09-23 03:21] LABS: URINE APPEARANCE CLEAR; URINE BILIRUBIN NEGATIVE (NEGATIVE); URINE COLOR YELLOW; URINE GLUCOSE (UA) NEGATIVE (NEGATIVE); URINE KETONE NEGATIVE (NEGATIVE); URINE LEUK ESTERASE NEGATIVE (NEGATIVE); URINE NITRITE NEGATIVE (NEGATIVE); URINE PROTEIN NEGATIVE (NEGATIVE)
[2022-09-23] MEDS: INSULIN SLIDING SCALE (NOVOLOG) 1 VIAL SQ SCH ×4 (06:05→23:00)
[2022-09-23] MEDS ORDERED: LEVOTHYROXINE NA 150 MCG TABLET GT SCH (07:00)
[2022-09-23] MEDS ORDERED: ACETAMINOPHEN 325 MG TABLET (FP) PO PRN (07:48)
[2022-09-23] MEDS ORDERED: ACETAMINOPHEN 650 MG/20.3 ML ORAL SOLUTION (CUPS) GT PRN (07:49)
[2022-09-23] MEDS: ALBUTEROL SO4 0.083% IH SOL 2.5 MG/3 ML VIAL.NEB. NEB SCH ×4 (08:21→20:41)
[2022-09-23 08:37] LABS: BASO % 0.7 % (0-2.0); EOS % 3.1 % (0-4.5); HEMATOCRIT 30.2 % (35.4-49); HEMOGLOBIN 9.8 GM/dL (11.7-16.9); LYMPH % 18.5 % (8-40); MCH 23.6 pg (25.7-33.7); MCHC 32.6 g/dl (32.0-35.9); MEAN CELL VOLUME 72.3 fl (80-96); MEAN PLT VOLUME 10.1 fl (7.5-11.1); MONO % 8.9 % (3.8-10.2); NEUT % 68.8 % (42.8-82.8); PLATELET COUNT 174 10^3/uL (134-434); RBC 4.17 M/mm3 (4.00-5.60); RDW 14.2 % (11.9-15.9); WHITE BLOOD COUNT 7.7 K/mm3 (4.0-10.0)
[2022-09-23 08:51] LABS: INR 1.34 (0.83-1.09); PROTHROMBIN TIME (PATIENT) 15.4 SEC (9.7-13.0)
[2022-09-23 08:54] LABS: ACTIVATED PTT 36.6 SECONDS (25.2-36.5)
[2022-09-23 09:07] LABS: ALBUMIN 2.8 g/dl (3.4-5.0); CALCIUM 8.6 mg/dL (8.5-10.1)
[2022-09-23 09:08] LABS: BLOOD UREA NITROGEN 21.5 mg/dL (7-18); MAGNESIUM 1.9 mg/dL (1.8-2.4)
[2022-09-23 09:12] LABS: BILIRUBIN,TOTAL 0.5 mg/dL (0.2-1); TOT PROT 6.5 g/dl (6.4-8.2)
[2022-09-23] MEDS ORDERED: LEVOTHYROXINE SODIUM 100 MCG VIAL IVPUSH SCH (10:00)
[2022-09-23] MEDS: PANTOPRAZOLE SODIUM 40 MG VIAL IVPUSH SCH (10:20)
[2022-09-23] MEDS: ASPIRIN 81 MG CHEWABLE TABLETS GT SCH (10:21)
[2022-09-23] MEDS: APIXABAN 2.5 MG TABLET GT SCH ×2 (10:21→21:59)
[2022-09-23] MEDS: SEVELAMER CARBONATE 0.8 GM POWDER PACKET GT SCH ×2 (10:21→21:59)
[2022-09-23] MEDS ORDERED: PNEUMOC 20-VAL CONJ-DIP CRM/PF 0.5 ML SYRINGE IM ONE (14:00)
[2022-09-23] MEDS ORDERED: DEXTROSE 5%-NORMAL SALINE 1,000 ML IV SCH (14:57)
[2022-09-23] MEDS ORDERED: VANCOMYCIN/WATER FOR INJ (PEG) 1,000 MG/200 ML BAG IVPB ONE (18:00)
[2022-09-23] MEDS: ATORVASTATIN CA 80 MG TABLET (FP) PEG SCH (21:59)
[2022-09-24] MEDS: INSULIN SLIDING SCALE (NOVOLOG) 1 VIAL SQ SCH ×4 (06:34→22:10)
[2022-09-24] MEDS: LEVOTHYROXINE NA 125 MCG TABLET (FP) GT SCH (06:36)
[2022-09-24] MEDS: ALBUTEROL SO4 0.083% IH SOL 2.5 MG/3 ML VIAL.NEB. NEB SCH ×4 (08:34→20:03)
[2022-09-24 08:57] LABS: CALCIUM 7.9 mg/dL (8.5-10.1)
[2022-09-24 08:58] LABS: ALBUMIN 2.5 g/dl (3.4-5.0); BLOOD UREA NITROGEN 12.8 mg/dL (7-18)
[2022-09-24 09:01] LABS: CREATININE 0.8 mg/dL (0.55-1.3)
[2022-09-24 09:03] LABS: BILIRUBIN,TOTAL 0.5 mg/dL (0.2-1)
[2022-09-24] MEDS: CEFTRIAXONE 2 GM in DEXTROSE 5%-WATER 100 ML IVPB SCH (09:45)
[2022-09-24] MEDS: APIXABAN 2.5 MG TABLET GT SCH ×2 (09:48→22:10)
[2022-09-24] MEDS: PANTOPRAZOLE SODIUM 40 MG VIAL IVPUSH SCH (09:48)
[2022-09-24] MEDS: SEVELAMER CARBONATE 0.8 GM POWDER PACKET GT SCH ×2 (09:48→22:10)
[2022-09-24] MEDS: ASPIRIN 81 MG CHEWABLE TABLETS GT SCH (09:48)
[2022-09-24] MEDS ORDERED: CEFTRIAXONE 2 GM-D5W BAG 2 GM/50 ML BAG IVPB SCH (10:00)
[2022-09-24] MEDS ORDERED: VANCOMYCIN/WATER FOR INJ (PEG) 1,000 MG/200 ML BAG IVPB SCH (10:00)
[2022-09-24] MEDS ORDERED: VANCOMYCIN 1,000 MG in DEXTROSE 5%-WATER - 250 ML IVPB SCH (10:00)
[2022-09-24] MEDS: POLYETHYLENE GLYCOL (HEALTHYLAX) 3350 17 GM PACKET GT SCH ×2 (10:29→22:10)
[2022-09-24 11:10] LABS: BASO % 0.8 % (0-2.0); EOS % 4.6 % (0-4.5); HEMATOCRIT 27.8 % (35.4-49); LYMPH % 21.5 % (8-40); MCH 23.3 pg (25.7-33.7); MCHC 32.3 g/dl (32.0-35.9); MEAN PLT VOLUME 10.3 fl (7.5-11.1); NEUT % 61.1 % (42.8-82.8); PLATELET COUNT 166 10^3/uL (134-434); RBC 3.86 M/mm3 (4.00-5.60); RDW 13.9 % (11.9-15.9)
[2022-09-24] MEDS: ATORVASTATIN CA 80 MG TABLET (FP) PEG SCH (22:10)
[2022-09-25] MEDS: LEVOTHYROXINE NA 125 MCG TABLET (FP) GT SCH (06:14)
[2022-09-25] MEDS: INSULIN SLIDING SCALE (NOVOLOG) 1 VIAL SQ SCH ×4 (06:18→21:23)
[2022-09-25 08:18] LABS: HEMATOCRIT 28.7 % (35.4-49); HEMOGLOBIN 9.2 GM/dL (11.7-16.9); MCH 23.3 pg (25.7-33.7); MCHC 32.1 g/dl (32.0-35.9); MEAN CELL VOLUME 72.6 fl (80-96); MEAN PLT VOLUME 9.9 fl (7.5-11.1); PLATELET COUNT 167 10^3/uL (134-434); RBC 3.95 M/mm3 (4.00-5.60); RDW 14.3 % (11.9-15.9)
[2022-09-25] MEDS: ALBUTEROL SO4 0.083% IH SOL 2.5 MG/3 ML VIAL.NEB. NEB SCH ×4 (08:27→19:48)
[2022-09-25 08:30] LABS: CALCIUM 8.1 mg/dL (8.5-10.1)
[2022-09-25 08:31] LABS: ALBUMIN 2.5 g/dl (3.4-5.0); BLOOD UREA NITROGEN 12.9 mg/dL (7-18)
[2022-09-25 08:34] LABS: CREATININE 0.7 mg/dL (0.55-1.3); PHOSPHOROUS 2.9 mg/dL (2.5-4.9)
[2022-09-25 08:35] LABS: BILIRUBIN,TOTAL 0.2 mg/dL (0.2-1)
[2022-09-25 08:57] LABS: WHITE BLOOD COUNT 7.8 K/mm3 (4.0-10.0)
[2022-09-25] MEDS: SEVELAMER CARBONATE 0.8 GM POWDER PACKET GT SCH ×2 (09:21→21:22)
[2022-09-25] MEDS: APIXABAN 2.5 MG TABLET GT SCH ×2 (09:21→21:23)
[2022-09-25] MEDS: POLYETHYLENE GLYCOL (HEALTHYLAX) 3350 17 GM PACKET GT SCH ×2 (09:21→21:22)
[2022-09-25] MEDS: ASPIRIN 81 MG CHEWABLE TABLETS GT SCH (09:21)
[2022-09-25 10:15] LABS: ANISOCYTOSIS 1+; MACROCYTOSIS 0; TARGET CELLS 2+
[2022-09-25] MEDS: CEFTRIAXONE 2 GM in DEXTROSE 5%-WATER 100 ML IVPB SCH (11:15)
[2022-09-25] MEDS: PANTOPRAZOLE SODIUM 40 MG VIAL IVPUSH SCH (11:15)
[2022-09-25] MEDS: AMOX TR/POTASSIUM CLAVULANATE 600 MG/5 ML GT SCH (17:00)
[2022-09-25] MEDS ORDERED: METOCLOPRAMIDE HCL INJECTION 10 MG/2 ML VIAL IVPUSH PRN (17:45)
[2022-09-25] MEDS: ATORVASTATIN CA 80 MG TABLET (FP) PEG SCH (21:23)
[2022-09-25] MEDS: SCOPOLAMINE HYDROBROMIDE 1 PATCH PATCH.TD72 TD SCH (21:23)
[2022-09-26] MEDS: INSULIN SLIDING SCALE (NOVOLOG) 1 VIAL SQ SCH ×3 (06:05→17:08)
[2022-09-26] MEDS: LEVOTHYROXINE NA 125 MCG TABLET (FP) GT SCH (06:05)
[2022-09-26] MEDS: ALBUTEROL SO4 0.083% IH SOL 2.5 MG/3 ML VIAL.NEB. NEB SCH ×4 (07:40→20:37)
[2022-09-26] MEDS: AMOX TR/POTASSIUM CLAVULANATE 600 MG/5 ML GT SCH ×2 (08:30→17:08)
[2022-09-26 08:39] LABS: BASO % 1.1 % (0-2.0); EOS % 6.4 % (0-4.5); HEMATOCRIT 28.6 % (35.4-49); HEMOGLOBIN 9.4 GM/dL (11.7-16.9); LYMPH % 34.2 % (8-40); MCH 23.6 pg (25.7-33.7); MEAN CELL VOLUME 71.4 fl (80-96); MEAN PLT VOLUME 9.6 fl (7.5-11.1); NEUT % 46.3 % (42.8-82.8); PLATELET COUNT 176 10^3/uL (134-434); RDW 14.2 % (11.9-15.9); WHITE BLOOD COUNT 3.7 K/mm3 (4.0-10.0)
[2022-09-26 08:56] LABS: ALBUMIN 2.5 g/dl (3.4-5.0); BLOOD UREA NITROGEN 15.3 mg/dL (7-18); CALCIUM 8.3 mg/dL (8.5-10.1)
[2022-09-26 08:59] LABS: CREATININE 0.7 mg/dL (0.55-1.3); PHOSPHOROUS 2.9 mg/dL (2.5-4.9)
[2022-09-26 09:00] LABS: BILIRUBIN,TOTAL 0.2 mg/dL (0.2-1)
[2022-09-26 09:01] LABS: TOT PROT 6.2 g/dl (6.4-8.2)
[2022-09-26] MEDS: PANTOPRAZOLE SODIUM 40 MG VIAL IVPUSH SCH (10:34)
[2022-09-26] MEDS: APIXABAN 2.5 MG TABLET GT SCH (10:34)
[2022-09-26] MEDS: ASPIRIN 81 MG CHEWABLE TABLETS GT SCH (10:34)
[2022-09-26] MEDS: SEVELAMER CARBONATE 0.8 GM POWDER PACKET GT SCH (10:34)
[2022-09-26] MEDS: POLYETHYLENE GLYCOL (HEALTHYLAX) 3350 17 GM PACKET GT SCH (10:34)
[2022-09-26 18:34] VITALS: BP 110/62; PULSE 77; RESP 18; TEMP 97.9
== END 2022-09-26 21:54 | DRG 177 ==
LOC: JER 20:31 → JERBED 09-22 01:39 → J4S 09-22 20:25
PROVIDERS: ADMIT Internal Medicine; ATTEND Internal Medicine
DX: J69.0 Pneumonitis due to inhalation of food and vomit (principal); G93.41 Metabolic encephalopathy; J44.0 Chronic obstructive pulmonary disease with (acute) lower respiratory infection; J90 Pleural effusion, not elsewhere classified; G93.1 Anoxic brain damage, not elsewhere classified; R78.81 Bacteremia; R64 Cachexia; R41.82 Altered mental status, unspecified; I25.10 Atherosclerotic heart disease of native coronary artery without angina pectoris; E78.5 Hyperlipidemia, unspecified; E03.9 Hypothyroidism, unspecified; I11.0 Hypertensive heart disease with heart failure; I50.9 Heart failure, unspecified; E11.9 Type 2 diabetes mellitus without complications; I25.2 Old myocardial infarction; K21.9 Gastro-esophageal reflux disease without esophagitis; R33.9 Retention of urine, unspecified; D64.9 Anemia, unspecified; K59.00 Constipation, unspecified; Z68.25 Body mass index [BMI] 25.0-25.9, adult; R00.0 Tachycardia, unspecified; Z86.718 Personal history of other venous thrombosis and embolism; Z79.01 Long term (current) use of anticoagulants; Z86.73 Personal history of transient ischemic attack (TIA), and cerebral infarction without residual deficits; Z93.0 Tracheostomy status
CPT/HCPCS: 0241U-QW; 36415; 70450-TC; 71045-TC-FY; 71260-TC; 74177-TC; 76705-TC; 78226-TC; 80048; 80053; 81003; 82550; 82962; 83605; 83690; 83735; 84100; 84443; 84484; 85025; 85610; 85730; 87040; 87081; 87086; 90677; 93005; 93010; 94640; 97161-GP; 99285-25; A9537; C9803-CS; Q9967; U0003; U0005

== ENCOUNTER 2023-01-17 18:21 | Inpatient (IN) | payer OTHER ==
[2023-01-17 20:10] LABS: VENOUS O2 SATURATION 53.2 % (70-80); VENOUS PCO2 51.1 mmHg (38-52); VENOUS PH 7.42 (7.310-7.410)
[2023-01-17 20:17] LABS: BASO % 0.4 % (0-2.0); EOS % 0.4 % (0-4.5); HEMATOCRIT 24.3 % (35.4-49); HEMOGLOBIN 7.9 GM/dL (11.7-16.9); LYMPH % 13.9 % (8-40); MCH 22.1 pg (25.7-33.7); MCHC 32.5 g/dl (32.0-35.9); MEAN CELL VOLUME 68.1 fl (80-96); MEAN PLT VOLUME 9.2 fl (7.5-11.1); MONO % 11.7 % (3.8-10.2); NEUT % 73.6 % (42.8-82.8); PLATELET COUNT 256 10^3/uL (134-434); RBC 3.57 M/mm3 (4.00-5.60); RDW 15.3 % (11.9-15.9); WHITE BLOOD COUNT 8.1 K/mm3 (4.0-10.0)
[2023-01-17 20:24] LABS: INR 1.37 (0.83-1.09); PROTHROMBIN TIME (PATIENT) 15.8 SEC (9.7-13.0)
[2023-01-17 20:27] LABS: ACTIVATED PTT 36.3 SECONDS (25.2-36.5)
[2023-01-17 20:33] LABS: BLOOD UREA NITROGEN 24.1 mg/dL (7-18)
[2023-01-17 20:34] LABS: ALBUMIN 1.9 g/dl (3.4-5.0); MAGNESIUM 2.1 mg/dL (1.8-2.4)
[2023-01-17 20:38] LABS: BILIRUBIN,TOTAL 0.3 mg/dL (0.2-1); CREATININE 0.8 mg/dL (0.55-1.3); TOT PROT 5.9 g/dl (6.4-8.2)
[2023-01-17] MEDS ORDERED: MEROPENEM 1 GM in DEXTROSE 5%-WATER 100 ML IVPB ONE (21:11)
[2023-01-17] MEDS ORDERED: VANCOMYCIN/WATER 1,250 MG/250 ML BAG (RESTRICTED TO ID ONLY) IVPB ONE (21:11)
[2023-01-17] MEDS ORDERED: MEROPENEM 1 GM VIAL (RESTRICTED TO ID) IVPB ONE (22:24)
[2023-01-17] MEDS ORDERED: VANCOMYCIN/WATER 1250 MG 1,250 MG/250 ML BAG IVPB ONE (23:13)
[2023-01-17] MEDS ORDERED: SODIUM CHLORIDE 0.9% 500 ML INFUS.BAG IV ONE (23:41)
[2023-01-18 02:06] LABS: EPI CELLS 21 /uL (0-25.1); HYALINE CASTS 0 /uL (0-3.1); PH,URINE 6.5 (5.0-8.0); URINE APPEARANCE CLEAR; URINE BACTERIA 3447 /uL (0-1359); URINE BILIRUBIN NEGATIVE (NEGATIVE); URINE COLOR YELLOW; URINE GLUCOSE (UA) NEGATIVE (NEGATIVE); URINE KETONE NEGATIVE (NEGATIVE); URINE LEUK ESTERASE 2+ (NEGATIVE); URINE NITRITE NEGATIVE (NEGATIVE); URINE PROTEIN TRACE (NEGATIVE); URINE RBC 19 /uL (0-23.9); URINE WBC 71 /uL (0-25.8)
[2023-01-18] MEDS ORDERED: ALBUTEROL SO4 0.083% IH SOL 2.5 MG/3 ML VIAL.NEB. NEB PRN (03:36)
[2023-01-18] MEDS ORDERED: MELATONIN 5 MG TABLETS PO PRN (04:14)
[2023-01-18 06:41] LABS: BASO % 0.4 % (0-2.0); EOS % 1.1 % (0-4.5); HEMATOCRIT 23.6 % (35.4-49); HEMOGLOBIN 7.8 GM/dL (11.7-16.9); LYMPH % 13.1 % (8-40); MCH 22.6 pg (25.7-33.7); MEAN CELL VOLUME 68.5 fl (80-96); MEAN PLT VOLUME 8.8 fl (7.5-11.1); MONO % 12.5 % (3.8-10.2); NEUT % 72.9 % (42.8-82.8); PLATELET COUNT 251 10^3/uL (134-434); RBC 3.44 M/mm3 (4.00-5.60); RDW 15.4 % (11.9-15.9); WHITE BLOOD COUNT 7.8 K/mm3 (4.0-10.0)
[2023-01-18 07:10] LABS: ALBUMIN 1.8 g/dl (3.4-5.0); BLOOD UREA NITROGEN 21.1 mg/dL (7-18); CALCIUM 7.8 mg/dL (8.5-10.1)
[2023-01-18 07:13] LABS: CREATININE 0.7 mg/dL (0.55-1.3); PHOSPHOROUS 3.9 mg/dL (2.5-4.9)
[2023-01-18 07:15] LABS: BILIRUBIN,TOTAL 0.4 mg/dL (0.2-1); TOT PROT 5.6 g/dl (6.4-8.2)
[2023-01-18] MEDS: INSULIN SLIDING SCALE (NOVOLOG) 1 VIAL SQ SCH ×4 (07:21→23:12)
[2023-01-18] MEDS ORDERED: LEVOTHYROXINE NA 50 MCG TABLET (FP) ONE (07:43)
[2023-01-18] MEDS: LEVOTHYROXINE NA 125 MCG TABLET (FP) GT SCH (07:58)
[2023-01-18] MEDS ORDERED: MEROPENEM 1 GM in DEXTROSE 5%-WATER 100 ML IVPB SCH (10:00)
[2023-01-18] MEDS ORDERED: DEXAMETHASONE SOD PHOSPHATE 10 MG/1 ML VIAL IVPUSH SCH ×2 (10:00)
[2023-01-18] MEDS ORDERED: HEPARIN NA (PORCINE) 5,000 UNITS/ML 1ML VIAL SQ SCH (10:00)
[2023-01-18] MEDS ORDERED: REMDESIVIR 200 MG in SODIUM CHLORIDE 250 ML IVPB ONE ×2 (10:00→14:15)
[2023-01-18] MEDS ORDERED: PANTOPRAZOLE 40 MG TABLET PO SCH (10:00)
[2023-01-18] MEDS: FUROSEMIDE 20 MG TABLET (FP) GT SCH (11:05)
[2023-01-18] MEDS: PANTOPRAZOLE SODIUM 40 MG VIAL IVPUSH SCH (11:30)
[2023-01-18] MEDS: SCOPOLAMINE HYDROBROMIDE 1 PATCH PATCH.TD72 TD SCH (17:01)
[2023-01-18] MEDS: PIPERACILLIN/TAZOB 3.375 GM 3.375 GM in DEXTROSE 5%-WATER - 50 ML IVPB SCH (17:29)
[2023-01-18] MEDS ORDERED: ATORVASTATIN CA 80 MG TABLET (FP) GT SCH (22:00)
[2023-01-19] MEDS ORDERED: VANCOMYCIN 1 GM in D5W (PRE-DOCKED) 1,000 MG/250 ML IVPB ONE (00:19)
[2023-01-19] MEDS: PIPERACILLIN/TAZOB 3.375 GM 3.375 GM in DEXTROSE 5%-WATER - 50 ML IVPB SCH ×3 (01:02→17:26)
[2023-01-19] MEDS: INSULIN SLIDING SCALE (NOVOLOG) 1 VIAL SQ SCH ×4 (06:00→23:09)
[2023-01-19] MEDS: LEVOTHYROXINE NA 125 MCG TABLET (FP) GT SCH (06:01)
[2023-01-19] MEDS: FUROSEMIDE 20 MG TABLET (FP) GT SCH (10:15)
[2023-01-19] MEDS: PANTOPRAZOLE SODIUM 40 MG VIAL IVPUSH SCH (10:47)
[2023-01-19 12:36] LABS: BASO % 0.5 % (0-2.0); EOS % 1.6 % (0-4.5); HEMATOCRIT 25.8 % (35.4-49); HEMOGLOBIN 8.8 GM/dL (11.7-16.9); LYMPH % 8.5 % (8-40); MCHC 34.2 g/dl (32.0-35.9); MEAN PLT VOLUME 8.3 fl (7.5-11.1); MONO % 12.1 % (3.8-10.2); NEUT % 77.3 % (42.8-82.8); PLATELET COUNT 253 10^3/uL (134-434); RBC 3.69 M/mm3 (4.00-5.60); RDW 17.5 % (11.9-15.9); WHITE BLOOD COUNT 8.6 K/mm3 (4.0-10.0)
[2023-01-19] MEDS ORDERED: INSULIN (NOVOLOG) ASPART 100 UNITS/ML 10ML VIAL ONE (12:40)
[2023-01-19 12:50] LABS: ALBUMIN 1.7 g/dl (3.4-5.0)
[2023-01-19 12:50] LABS: CALCIUM 7.7 mg/dL (8.5-10.1)
[2023-01-19 12:51] LABS: BLOOD UREA NITROGEN 24.5 mg/dL (7-18); MAGNESIUM 1.9 mg/dL (1.8-2.4)
[2023-01-19 12:53] LABS: BILIRUBIN,DIRECT 0.2 mg/dL (0.0-0.2)
[2023-01-19 12:54] LABS: CREATININE 0.7 mg/dL (0.55-1.3)
[2023-01-19 12:56] LABS: BILIRUBIN,TOTAL 0.5 mg/dL (0.2-1); TOT PROT 5.3 g/dl (6.4-8.2)
[2023-01-19] MEDS: AMINO ACIDS/PROTEIN HYDROLYS 30 ML LIQUID.PKT GT SCH (17:26)
[2023-01-20] MEDS: PIPERACILLIN/TAZOB 3.375 GM 3.375 GM in DEXTROSE 5%-WATER - 50 ML IVPB SCH ×2 (01:38→12:27)
[2023-01-20] MEDS: LEVOTHYROXINE NA 125 MCG TABLET (FP) GT SCH (06:55)
[2023-01-20] MEDS: INSULIN SLIDING SCALE (NOVOLOG) 1 VIAL SQ SCH ×4 (07:19→21:21)
[2023-01-20 10:04] LABS: ALBUMIN 1.8 g/dl (3.4-5.0)
[2023-01-20 10:07] LABS: BILIRUBIN,DIRECT 0.1 mg/dL (0.0-0.2)
[2023-01-20 10:09] LABS: BILIRUBIN,TOTAL 0.3 mg/dL (0.2-1); TOT PROT 5.5 g/dl (6.4-8.2)
[2023-01-20] MEDS: AMINO ACIDS/PROTEIN HYDROLYS 30 ML LIQUID.PKT GT SCH ×2 (12:22→17:48)
[2023-01-20] MEDS: ASCORBIC ACID 500 MG TABLET (FP) GT SCH (12:22)
[2023-01-20] MEDS: PANTOPRAZOLE SODIUM 40 MG VIAL IVPUSH SCH (12:22)
[2023-01-20] MEDS: FUROSEMIDE 20 MG TABLET (FP) GT SCH (12:22)
[2023-01-21] MEDS: INSULIN SLIDING SCALE (NOVOLOG) 1 VIAL SQ SCH ×4 (06:00→22:48)
[2023-01-21] MEDS: LEVOTHYROXINE NA 125 MCG TABLET (FP) GT SCH (06:10)
[2023-01-21 08:26] LABS: ALBUMIN 1.8 g/dl (3.4-5.0)
[2023-01-21 08:27] LABS: TOT PROT 5.4 g/dl (6.4-8.2)
[2023-01-21 08:28] LABS: BILIRUBIN,DIRECT 0.2 mg/dL (0.0-0.2); BILIRUBIN,TOTAL 0.3 mg/dL (0.2-1)
[2023-01-21] MEDS: AMINO ACIDS/PROTEIN HYDROLYS 30 ML LIQUID.PKT GT SCH ×2 (10:27→16:50)
[2023-01-21] MEDS: PIPERACILLIN/TAZOB 3.375 GM 3.375 GM in DEXTROSE 5%-WATER - 50 ML IVPB SCH ×2 (10:27→17:00)
[2023-01-21] MEDS: FUROSEMIDE 20 MG TABLET (FP) GT SCH (10:27)
[2023-01-21] MEDS: ASCORBIC ACID 500 MG TABLET (FP) GT SCH (10:27)
[2023-01-21] MEDS: SCOPOLAMINE HYDROBROMIDE 1 PATCH PATCH.TD72 TD SCH (10:28)
[2023-01-21] MEDS: PANTOPRAZOLE SODIUM 40 MG VIAL IVPUSH SCH (10:28)
[2023-01-22] MEDS: PIPERACILLIN/TAZOB 3.375 GM 3.375 GM in DEXTROSE 5%-WATER - 50 ML IVPB SCH ×2 (01:53→10:40)
[2023-01-22] MEDS: INSULIN SLIDING SCALE (NOVOLOG) 1 VIAL SQ SCH ×4 (07:01→23:18)
[2023-01-22] MEDS: LEVOTHYROXINE NA 125 MCG TABLET (FP) GT SCH (07:01)
[2023-01-22] MEDS: AMINO ACIDS/PROTEIN HYDROLYS 30 ML LIQUID.PKT GT SCH ×2 (08:56→16:44)
[2023-01-22 09:58] LABS: RBC 3.83 M/mm3 (4.00-5.60); WHITE BLOOD COUNT 7.6 K/mm3 (4.0-10.0)
[2023-01-22 09:59] LABS: BASO % 0.6 % (0-2.0); EOS % 3.3 % (0-4.5); HEMATOCRIT 27.1 % (35.4-49); HEMOGLOBIN 8.9 GM/dL (11.7-16.9); LYMPH % 14.6 % (8-40); MCH 23.2 pg (25.7-33.7); MCHC 32.7 g/dl (32.0-35.9); MEAN CELL VOLUME 70.9 fl (80-96); MEAN PLT VOLUME 8.7 fl (7.5-11.1); MONO % 9.7 % (3.8-10.2); NEUT % 71.8 % (42.8-82.8); PLATELET COUNT 287 10^3/uL (134-434); RDW 17.9 % (11.9-15.9)
[2023-01-22 10:23] LABS: CALCIUM 7.8 mg/dL (8.5-10.1)
[2023-01-22 10:24] LABS: ALBUMIN 1.8 g/dl (3.4-5.0)
[2023-01-22 10:26] LABS: BILIRUBIN,DIRECT 0.1 mg/dL (0.0-0.2)
[2023-01-22 10:27] LABS: CREATININE 0.6 mg/dL (0.55-1.3)
[2023-01-22 10:28] LABS: BILIRUBIN,TOTAL 0.6 mg/dL (0.2-1); TOT PROT 5.5 g/dl (6.4-8.2)
[2023-01-22] MEDS: FUROSEMIDE 20 MG TABLET (FP) GT SCH (10:39)
[2023-01-22] MEDS: ASCORBIC ACID 500 MG TABLET (FP) GT SCH (10:39)
[2023-01-22] MEDS: PANTOPRAZOLE SODIUM 40 MG VIAL IVPUSH SCH (10:56)
[2023-01-23] MEDS: INSULIN SLIDING SCALE (NOVOLOG) 1 VIAL SQ SCH ×4 (06:39→23:16)
[2023-01-23] MEDS: LEVOTHYROXINE NA 125 MCG TABLET (FP) GT SCH (06:39)
[2023-01-23] MEDS: ASCORBIC ACID 500 MG TABLET (FP) GT SCH (12:20)
[2023-01-23] MEDS: PANTOPRAZOLE SODIUM 40 MG VIAL IVPUSH SCH (12:20)
[2023-01-23] MEDS: FUROSEMIDE 20 MG TABLET (FP) GT SCH (12:21)
[2023-01-23] MEDS: AMINO ACIDS/PROTEIN HYDROLYS 30 ML LIQUID.PKT GT SCH ×2 (12:21→18:36)
[2023-01-23 15:03] LABS: BASO % 0.6 % (0-2.0); EOS % 3.8 % (0-4.5); HEMATOCRIT 27.4 % (35.4-49); HEMOGLOBIN 9.2 GM/dL (11.7-16.9); LYMPH % 16.1 % (8-40); MCH 23.8 pg (25.7-33.7); MCHC 33.5 g/dl (32.0-35.9); MEAN PLT VOLUME 8.1 fl (7.5-11.1); MONO % 9.1 % (3.8-10.2); NEUT % 70.4 % (42.8-82.8); PLATELET COUNT 285 10^3/uL (134-434); RBC 3.86 M/mm3 (4.00-5.60); RDW 18.1 % (11.9-15.9); WHITE BLOOD COUNT 6.6 K/mm3 (4.0-10.0)
[2023-01-23 15:56] LABS: CALCIUM 7.9 mg/dL (8.5-10.1)
[2023-01-23 15:57] LABS: ALBUMIN 1.9 g/dl (3.4-5.0); BLOOD UREA NITROGEN 25.7 mg/dL (7-18)
[2023-01-23 16:00] LABS: CREATININE 0.6 mg/dL (0.55-1.3)
[2023-01-23 16:01] LABS: BILIRUBIN,TOTAL 0.6 mg/dL (0.2-1); TOT PROT 5.7 g/dl (6.4-8.2)
[2023-01-23 16:18] VITALS: BMI 21.9
[2023-01-24] MEDS: LEVOTHYROXINE NA 125 MCG TABLET (FP) GT SCH (06:58)
[2023-01-24] MEDS: INSULIN SLIDING SCALE (NOVOLOG) 1 VIAL SQ SCH ×4 (07:28→22:09)
[2023-01-24] MEDS: AMINO ACIDS/PROTEIN HYDROLYS 30 ML LIQUID.PKT GT SCH ×2 (10:58→16:57)
[2023-01-24] MEDS: FUROSEMIDE 20 MG TABLET (FP) GT SCH (10:58)
[2023-01-24] MEDS: SCOPOLAMINE HYDROBROMIDE 1 PATCH PATCH.TD72 TD SCH (10:58)
[2023-01-24] MEDS: PANTOPRAZOLE SODIUM 40 MG VIAL IVPUSH SCH (10:58)
[2023-01-24] MEDS: ASCORBIC ACID 500 MG TABLET (FP) GT SCH (10:58)
[2023-01-24 23:23] VITALS: BP 132/65; PULSE 64; RESP 18; TEMP 97.7
== END 2023-01-24 23:25 | DRG 177 ==
LOC: JER 18:21 → JERBED 01-18 01:37 → J8W 01-18 08:41
PROVIDERS: ADMIT Internal Medicine; ATTEND Internal Medicine
PROC: 30233N1 Transfusion of Nonautologous Red Blood Cells into Peripheral Vein, Percutaneous Approach (ICD-10-PCS; principal; 2023-01-18)
DX: U07.1 COVID-19 (principal); J12.82 Pneumonia due to coronavirus disease 2019; J44.0 Chronic obstructive pulmonary disease with (acute) lower respiratory infection; I13.0 Hypertensive heart and chronic kidney disease with heart failure and stage 1 through stage 4 chronic kidney disease, or unspecified chronic kidney disease; J98.11 Atelectasis; K92.2 Gastrointestinal hemorrhage, unspecified; E87.1 Hypo-osmolality and hyponatremia; E46 Unspecified protein-calorie malnutrition; J96.11 Chronic respiratory failure with hypoxia; R64 Cachexia; Z68.1 Body mass index [BMI] 19.9 or less, adult; E03.9 Hypothyroidism, unspecified; E11.22 Type 2 diabetes mellitus with diabetic chronic kidney disease; D50.9 Iron deficiency anemia, unspecified; N18.9 Chronic kidney disease, unspecified; Z93.0 Tracheostomy status; E78.5 Hyperlipidemia, unspecified; K21.9 Gastro-esophageal reflux disease without esophagitis; I25.10 Atherosclerotic heart disease of native coronary artery without angina pectoris; R74.01 Elevation of levels of liver transaminase levels; R19.7 Diarrhea, unspecified; B96.20 Unspecified Escherichia coli [E. coli] as the cause of diseases classified elsewhere; B95.2 Enterococcus as the cause of diseases classified elsewhere
CPT/HCPCS: 0241U-QW; 36415; 36430; 71045-TC-FY; 71250-TC; 76705-TC; 80048; 80053; 80076; 81003; 82150; 82272; 82550; 82553; 82607; 82728; 82746; 82803; 82962; 82977; 83540; 83550; 83605; 83690; 83735; 84100; 85025; 85610; 85730; 86140; 86850; 86900; 86901; 86922; 87040; 87045; 87046; 87070; 87086; 87186; 87205; 87209; 87324; 87449; 87798; 87899; 93005; 93010; 99285-25; C9399; P9058

== ENCOUNTER 2023-08-09 11:19 | Inpatient (IN) | payer OTHER ==
[2023-08-09] MEDS ORDERED: PIPERACILLIN/TAZOB 4.5 GM 4.5 GM in DEXTROSE 5%-WATER 100 ML IVPB ONE (12:14)
[2023-08-09 12:43] LABS: BASO % 0.2 % (0-2.0); HEMATOCRIT 31.4 % (35.4-49); HEMOGLOBIN 9.5 GM/dL (11.7-16.9); LYMPH % 7.4 % (8-40); MCH 22.1 pg (25.7-33.7); MCHC 30.3 g/dl (32.0-35.9); MEAN CELL VOLUME 72.8 fl (80-96); MEAN PLT VOLUME 11.3 fl (7.5-11.1); MONO % 6.8 % (3.8-10.2); NEUT % 85.6 % (42.8-82.8); PLATELET COUNT 124 10^3/uL (134-434); RBC 4.32 M/mm3 (4.00-5.60); RDW 18.4 % (11.9-15.9); WHITE BLOOD COUNT 12.6 K/mm3 (4.0-10.0)
[2023-08-09 12:54] LABS: INR 1.58 (0.83-1.09); PROTHROMBIN TIME (PATIENT) 18.2 SEC (9.7-13.0)
[2023-08-09 12:56] LABS: ACTIVATED PTT 40.7 SECONDS (25.2-36.5)
[2023-08-09 13:02] LABS: POTASSIUM 3.9 mmol/L (3.5-5.1)
[2023-08-09 13:04] LABS: ALBUMIN 2.3 g/dl (3.4-5.0); BLOOD UREA NITROGEN 56.2 mg/dL (7-18); CALCIUM 8.3 mg/dL (8.5-10.1)
[2023-08-09 13:07] LABS: CREATININE 1.2 mg/dL (0.55-1.3)
[2023-08-09 13:09] LABS: BILIRUBIN,TOTAL 0.4 mg/dL (0.2-1); TOT PROT 6.7 g/dl (6.4-8.2)
[2023-08-09] MEDS ORDERED: PANTOPRAZOLE SODIUM 40 MG VIAL IVPUSH ONE (13:13)
[2023-08-09] MEDS ORDERED: PANTOPRAZOLE SODIUM 40 MG VIAL ONE (13:16)
[2023-08-09 14:31] VITALS: BMI 23.8
[2023-08-09 14:55] LABS: POTASSIUM 4.4 mmol/L (3.5-5.1)
[2023-08-09 14:58] LABS: ALBUMIN 2.3 g/dl (3.4-5.0); BLOOD UREA NITROGEN 56.8 mg/dL (7-18); CALCIUM 8.7 mg/dL (8.5-10.1)
[2023-08-09 15:01] LABS: CREATININE 1.3 mg/dL (0.55-1.3)
[2023-08-09 15:02] LABS: BILIRUBIN,TOTAL 0.4 mg/dL (0.2-1)
[2023-08-09 15:03] LABS: TOT PROT 6.7 g/dl (6.4-8.2)
[2023-08-09] MEDS ORDERED: LACTATED RINGERS SOLUTION 1,000 ML/1,000 ML INFUS.BAG IV SCH (16:45)
[2023-08-09 17:44] LABS: PH,URINE 5.5 (5.0-8.0); URINE APPEARANCE CLEAR; URINE BILIRUBIN NEGATIVE (NEGATIVE); URINE COLOR YELLOW; URINE GLUCOSE (UA) NEGATIVE (NEGATIVE); URINE KETONE NEGATIVE (NEGATIVE); URINE LEUK ESTERASE NEGATIVE (NEGATIVE); URINE NITRITE NEGATIVE (NEGATIVE); URINE PROTEIN TRACE (NEGATIVE); URINE UROBILINOGEN 0.2 mg/dL (0.2-1.0)
[2023-08-09] MEDS ORDERED: ATORVASTATIN CA 80 MG TABLET (FP) GT SCH (22:00)
[2023-08-10] MEDS: INSULIN SLIDING SCALE (NOVOLOG) 1 VIAL SQ SCH ×5 (00:15→22:31)
[2023-08-10] MEDS: PANTOPRAZOLE SODIUM 40 MG VIAL IVPUSH SCH ×3 (00:47→21:37)
[2023-08-10] MEDS: LEVOTHYROXINE NA 150 MCG TABLET GT SCH (06:19)
[2023-08-10] MEDS ORDERED: DEXTROSE 5%-WATER - 1,000 ML IV SCH (08:30)
[2023-08-10 09:57] LABS: BASO % 0.4 % (0-2.0); EOS % 0.4 % (0-4.5); HEMATOCRIT 26.5 % (35.4-49); HEMOGLOBIN 8.2 GM/dL (11.7-16.9); LYMPH % 7.4 % (8-40); MCH 22.7 pg (25.7-33.7); MCHC 30.8 g/dl (32.0-35.9); MEAN CELL VOLUME 73.7 fl (80-96); MEAN PLT VOLUME 11.9 fl (7.5-11.1); MONO % 5.2 % (3.8-10.2); NEUT % 86.6 % (42.8-82.8); PLATELET COUNT 118 10^3/uL (134-434); RDW 17.8 % (11.9-15.9); WHITE BLOOD COUNT 9.1 K/mm3 (4.0-10.0)
[2023-08-10] MEDS ORDERED: LEVOTHYROXINE NA 125 MCG TABLET (FP) GT SCH (10:00)
[2023-08-10 10:24] LABS: POTASSIUM 3.8 mmol/L (3.5-5.1)
[2023-08-10 10:29] LABS: ALBUMIN 2.1 g/dl (3.4-5.0); CALCIUM 8.2 mg/dL (8.5-10.1); MAGNESIUM 2.5 mg/dL (1.8-2.4)
[2023-08-10 10:32] LABS: PHOSPHOROUS 4.1 mg/dL (2.5-4.9)
[2023-08-10 10:33] LABS: CREATININE 1.1 mg/dL (0.55-1.3)
[2023-08-10 10:34] LABS: BILIRUBIN,TOTAL 0.4 mg/dL (0.2-1)
[2023-08-10] MEDS ORDERED: ALBUTEROL SO4 0.083% IH SOL 2.5 MG/3 ML VIAL.NEB. NEB PRN (15:40)
[2023-08-10 15:53] LABS: CHLORIDE 127 mmol/L (98-107); POTASSIUM 3.8 mmol/L (3.5-5.1)
[2023-08-10 15:54] LABS: CALCIUM 8.3 mg/dL (8.5-10.1)
[2023-08-10 15:55] LABS: BLOOD UREA NITROGEN 48.7 mg/dL (7-18); CO2 28 mmol/L (21-32); GLUCOSE,RANDOM 161 mg/dL (74-106)
[2023-08-10 15:58] LABS: CREATININE 1.2 mg/dL (0.55-1.3)
[2023-08-10 16:10] LABS: ANION GAP 5 MMOL/L (8-16); SODIUM 161 mmol/L (136-145)
[2023-08-11 01:47] LABS: POTASSIUM 3.5 mmol/L (3.5-5.1)
[2023-08-11 01:49] LABS: BLOOD UREA NITROGEN 39.8 mg/dL (7-18)
[2023-08-11] MEDS: DEXTROSE 5%-WATER - 1,000 ML IV SCH ×4 (02:56→20:01)
[2023-08-11] MEDS: LEVOTHYROXINE NA 150 MCG TABLET GT SCH (06:25)
[2023-08-11] MEDS: INSULIN SLIDING SCALE (NOVOLOG) 1 VIAL SQ SCH ×4 (06:32→21:29)
[2023-08-11 10:21] LABS: HEMATOCRIT 26.1 % (35.4-49); MCH 22.9 pg (25.7-33.7); MCHC 30.5 g/dl (32.0-35.9); MEAN PLT VOLUME 11.1 fl (7.5-11.1); PLATELET COUNT 109 10^3/uL (134-434); RBC 3.49 M/mm3 (4.00-5.60); RDW 17.4 % (11.9-15.9)
[2023-08-11 10:25] LABS: POTASSIUM 3.7 mmol/L (3.5-5.1)
[2023-08-11] MEDS: PANTOPRAZOLE SODIUM 40 MG VIAL IVPUSH SCH ×2 (10:30→21:24)
[2023-08-11 10:34] LABS: CALCIUM 7.8 mg/dL (8.5-10.1)
[2023-08-11 10:35] LABS: BLOOD UREA NITROGEN 34.6 mg/dL (7-18); MAGNESIUM 2.4 mg/dL (1.8-2.4)
[2023-08-11 10:38] LABS: PHOSPHOROUS 3.6 mg/dL (2.5-4.9)
[2023-08-11 13:14] LABS: POTASSIUM 3.7 mmol/L (3.5-5.1)
[2023-08-11 13:15] LABS: CALCIUM 7.8 mg/dL (8.5-10.1)
[2023-08-11 13:16] LABS: BLOOD UREA NITROGEN 32.8 mg/dL (7-18)
[2023-08-11] MEDS ORDERED: IRON SUCROSE INJECTION 200 MG in SODIUM CHLORIDE 90 ML IVPB ONE (16:00)
[2023-08-12] MEDS: INSULIN SLIDING SCALE (NOVOLOG) 1 VIAL SQ SCH ×4 (06:14→21:23)
[2023-08-12] MEDS: LEVOTHYROXINE NA 150 MCG TABLET GT SCH (06:15)
[2023-08-12 10:36] LABS: BASO % 0.3 % (0-2.0); HEMATOCRIT 24.7 % (35.4-49); HEMOGLOBIN 7.7 GM/dL (11.7-16.9); LYMPH % 17.1 % (8-40); MCH 22.2 pg (25.7-33.7); MCHC 31.1 g/dl (32.0-35.9); MEAN CELL VOLUME 71.2 fl (80-96); MONO % 9.1 % (3.8-10.2); NEUT % 71.5 % (42.8-82.8); PLATELET COUNT 110 10^3/uL (134-434); RBC 3.47 M/mm3 (4.00-5.60); RDW 17.3 % (11.9-15.9); WHITE BLOOD COUNT 5.3 K/mm3 (4.0-10.0)
[2023-08-12 11:06] LABS: POTASSIUM 3.6 mmol/L (3.5-5.1)
[2023-08-12 11:13] LABS: CALCIUM 7.5 mg/dL (8.5-10.1)
[2023-08-12 11:14] LABS: BLOOD UREA NITROGEN 22.4 mg/dL (7-18)
[2023-08-12 11:19] LABS: CREATININE 0.9 mg/dL (0.55-1.3)
[2023-08-12] MEDS: PANTOPRAZOLE SODIUM 40 MG VIAL IVPUSH SCH ×2 (11:37→21:19)
[2023-08-12] MEDS ORDERED: POTASSIUM CHLORIDE ORAL LIQUID 20 MEQ/15 ML GT ONE (17:50)
[2023-08-12] MEDS ORDERED: INSULIN (NOVOLOG) ASPART 100 UNITS/ML 10ML VIAL ONE (21:06)
[2023-08-13 04:50] VITALS: RESP 18
[2023-08-13] MEDS: LEVOTHYROXINE NA 150 MCG TABLET GT SCH (06:17)
[2023-08-13] MEDS: INSULIN SLIDING SCALE (NOVOLOG) 1 VIAL SQ SCH ×4 (06:17→22:51)
[2023-08-13] MEDS ORDERED: SCOPOLAMINE HYDROBROMIDE 1 PATCH PATCH.TD72 TD SCH (10:00)
[2023-08-13] MEDS: PANTOPRAZOLE SODIUM 40 MG VIAL IVPUSH SCH ×2 (10:37→22:17)
[2023-08-13 10:58] LABS: BASO % 0.2 % (0-2.0); EOS % 2.6 % (0-4.5); HEMATOCRIT 24.2 % (35.4-49); HEMOGLOBIN 7.7 GM/dL (11.7-16.9); LYMPH % 15.1 % (8-40); MCH 22.6 pg (25.7-33.7); MCHC 31.7 g/dl (32.0-35.9); MEAN CELL VOLUME 71.1 fl (80-96); MEAN PLT VOLUME 10.7 fl (7.5-11.1); MONO % 7.6 % (3.8-10.2); NEUT % 74.5 % (42.8-82.8); PLATELET COUNT 112 10^3/uL (134-434); RDW 17.1 % (11.9-15.9); WHITE BLOOD COUNT 5.6 K/mm3 (4.0-10.0)
[2023-08-13 11:14] LABS: POTASSIUM 4.2 mmol/L (3.5-5.1)
[2023-08-13 11:17] LABS: CALCIUM 7.7 mg/dL (8.5-10.1)
[2023-08-13 11:18] LABS: ALBUMIN 1.9 g/dl (3.4-5.0); MAGNESIUM 2.1 mg/dL (1.8-2.4)
[2023-08-13 11:20] LABS: PHOSPHOROUS 2.6 mg/dL (2.5-4.9)
[2023-08-13 11:21] LABS: CREATININE 0.8 mg/dL (0.55-1.3)
[2023-08-13 11:22] LABS: BILIRUBIN,TOTAL 0.2 mg/dL (0.2-1); TOT PROT 5.8 g/dl (6.4-8.2)
[2023-08-13] MEDS ORDERED: NAPH,MB-DB/K PH,MBDB POWDER PACKET GT ONE ×2 (18:20→21:00)
[2023-08-13] MEDS ORDERED: INSULIN (NOVOLOG) ASPART 100 UNITS/ML 10ML VIAL ONE (22:16)
[2023-08-14] MEDS: INSULIN SLIDING SCALE (NOVOLOG) 1 VIAL SQ SCH ×3 (06:03→16:40)
[2023-08-14] MEDS: LEVOTHYROXINE NA 150 MCG TABLET GT SCH (06:03)
[2023-08-14] MEDS ORDERED: POVIDONE-IODINE 10% SOLN 118 ML BOTTLE TP PRN (06:39)
[2023-08-14] MEDS ORDERED: SODIUM HYPOCHLORITE 0.25%- 473 ML BULK BOTTLE TP SCH (08:00)
[2023-08-14] MEDS: PANTOPRAZOLE SODIUM 40 MG VIAL IVPUSH SCH (09:26)
[2023-08-14] MEDS ORDERED: SILVER SULFADIAZINE 1% TOP CREAM 50 GM JAR TP SCH (10:00)
[2023-08-14] MEDS ORDERED: [UNRECOGNIZED DRUG - SUPPLY] TP SCH (10:00)
[2023-08-14 11:16] LABS: HEMOGLOBIN 7.8 GM/dL (11.7-16.9); MCH 22.6 pg (25.7-33.7); MCHC 31.3 g/dl (32.0-35.9); MEAN CELL VOLUME 72.2 fl (80-96); MEAN PLT VOLUME 10.3 fl (7.5-11.1); PLATELET COUNT 113 10^3/uL (134-434); RBC 3.47 M/mm3 (4.00-5.60); RDW 17.2 % (11.9-15.9); WHITE BLOOD COUNT 5.7 K/mm3 (4.0-10.0)
[2023-08-14 11:20] LABS: POTASSIUM 4.3 mmol/L (3.5-5.1)
[2023-08-14 11:24] LABS: CALCIUM 7.6 mg/dL (8.5-10.1)
[2023-08-14 11:25] LABS: BLOOD UREA NITROGEN 21.9 mg/dL (7-18); MAGNESIUM 2.2 mg/dL (1.8-2.4)
[2023-08-14 11:27] LABS: CREATININE 0.8 mg/dL (0.55-1.3); PHOSPHOROUS 2.9 mg/dL (2.5-4.9)
[2023-08-14 11:29] LABS: BILIRUBIN,TOTAL 0.2 mg/dL (0.2-1); TOT PROT 6.1 g/dl (6.4-8.2)
[2023-08-14 16:44] VITALS: BP 138/70; PULSE 69; TEMP 97.8
== END 2023-08-14 19:07 | DRG 813 ==
LOC: JER 11:19 → JERBED 16:41 → J6S 20:51
PROVIDERS: ADMIT Internal Medicine; ATTEND Internal Medicine
DX: D68.32 Hemorrhagic disorder due to extrinsic circulating anticoagulants (principal); E43 Unspecified severe protein-calorie malnutrition; L89.894 Pressure ulcer of other site, stage 4; R53.2 Functional quadriplegia; K92.0 Hematemesis; E87.0 Hyperosmolality and hypernatremia; G93.1 Anoxic brain damage, not elsewhere classified; Z68.1 Body mass index [BMI] 19.9 or less, adult; I13.0 Hypertensive heart and chronic kidney disease with heart failure and stage 1 through stage 4 chronic kidney disease, or unspecified chronic kidney disease; D62 Acute posthemorrhagic anemia; J96.10 Chronic respiratory failure, unspecified whether with hypoxia or hypercapnia; K21.9 Gastro-esophageal reflux disease without esophagitis; J44.9 Chronic obstructive pulmonary disease, unspecified; E78.5 Hyperlipidemia, unspecified; E03.9 Hypothyroidism, unspecified; N25.0 Renal osteodystrophy; E11.22 Type 2 diabetes mellitus with diabetic chronic kidney disease; I25.2 Old myocardial infarction; N18.9 Chronic kidney disease, unspecified; R94.5 Abnormal results of liver function studies; I50.9 Heart failure, unspecified; D50.9 Iron deficiency anemia, unspecified; D69.6 Thrombocytopenia, unspecified; K59.00 Constipation, unspecified; I25.10 Atherosclerotic heart disease of native coronary artery without angina pectoris; Z93.1 Gastrostomy status; Z93.0 Tracheostomy status; Z87.11 Personal history of peptic ulcer disease
CPT/HCPCS: 36415; 71045-TC-FY; 80048; 80053; 81003; 82728; 82962; 83540; 83550; 83735; 83935; 84100; 85025; 85027; 85610; 85730; 86850; 86900; 86901; 87040; 87086; 99285-25; J1756

== ENCOUNTER 2023-12-18 17:52 | Inpatient (IN) | payer OTHER ==
[2023-12-18 20:17] LABS: EOS % 0.1 % (0-4.5); HEMATOCRIT 32.5 % (35.4-49); HEMOGLOBIN 9.6 GM/dL (11.7-16.9); MEAN PLT VOLUME 10.7 fl (7.5-11.1); RBC 4.44 M/mm3 (4.00-5.60)
[2023-12-18 20:19] LABS: VENOUS BASE EXCESS 4.1 mmol/L (-2-2); VENOUS O2 SATURATION 92.4 % (70-80); VENOUS PCO2 37.6 mmHg (38-52); VENOUS PH 7.484 (7.310-7.410)
[2023-12-18 20:25] LABS: INR 1.11 (0.83-1.09); PROTHROMBIN TIME (PATIENT) 12.9 SEC (9.7-13.0)
[2023-12-18] MEDS ORDERED: ACETAMINOPHEN 1000 MG/100 ML BAG IVPB ONE (20:25)
[2023-12-18] MEDS ORDERED: VANCOMYCIN/WATER 1250 MG 1,250 MG/250 ML BAG IVPB ONE ×2 (20:25→20:40)
[2023-12-18] MEDS ORDERED: PIPERACILLIN/TAZOB 4.5 GM 4.5 GM in DEXTROSE 5%-WATER 100 ML IVPB ONE (20:26)
[2023-12-18 20:27] LABS: ACTIVATED PTT 27.5 SECONDS (25.2-36.5)
[2023-12-18 20:37] LABS: POTASSIUM 3.7 mmol/L (3.5-5.1)
[2023-12-18 20:40] LABS: CALCIUM 8.5 mg/dL (8.5-10.1)
[2023-12-18] MEDS ORDERED: PIPERACILLIN/TAZOB 4.5 GM 4.5 GM/100 ML BAG IVPB ONE (20:40)
[2023-12-18] MEDS ORDERED: ACETAMINOPHEN INJECTION 100 ML IVPB ONE (20:40)
[2023-12-18 20:41] LABS: ALBUMIN 1.6 g/dl (3.4-5.0)
[2023-12-18 20:43] LABS: CREATININE 1.4 mg/dL (0.55-1.3)
[2023-12-18 20:45] LABS: BILIRUBIN,TOTAL 0.3 mg/dL (0.2-1); TOT PROT 7.1 g/dl (6.4-8.2)
[2023-12-18] MEDS ORDERED: SODIUM CHLORIDE 1,000 ML IV STA (20:50)
[2023-12-18 20:54] LABS: BASO % 0.4 % (0-2.0); LYMPH % 6.6 % (8-40); MCH 21.6 pg (25.7-33.7); MCHC 29.5 g/dl (32.0-35.9); MEAN CELL VOLUME 73.1 fl (80-96); MONO % 7.1 % (3.8-10.2); NEUT % 85.8 % (42.8-82.8); WHITE BLOOD COUNT 18.2 K/mm3 (4.0-10.0)
[2023-12-18 20:55] LABS: PLATELET COUNT 222 10^3/uL (134-434)
[2023-12-18 21:04] LABS: LACTIC ACID 5.4 mmol/L (0.4-2.0)
[2023-12-18 21:21] LABS: ANISOCYTOSIS 3+; MACROCYTOSIS 0; OVALOCYTE 1+; TARGET CELLS 1+
[2023-12-18 22:20] LABS: EPI CELLS >36 /uL (0-25.1); HYALINE CASTS 1 /uL (0-3.1); PH,URINE 5.5 (5.0-8.0); URINE APPEARANCE CLOUDY; URINE BACTERIA 50 /uL (0-1359); URINE BILIRUBIN NEGATIVE (NEGATIVE); URINE COLOR YELLOW; URINE GLUCOSE (UA) NEGATIVE (NEGATIVE); URINE KETONE NEGATIVE (NEGATIVE); URINE LEUK ESTERASE 1+ (NEGATIVE); URINE NITRITE NEGATIVE (NEGATIVE); URINE PROTEIN 1+ (NEGATIVE); URINE UROBILINOGEN 0.2 mg/dL (0.2-1.0); URINE WBC 218 /uL (0-25.8)
[2023-12-18] MEDS ORDERED: DEXTROSE 5%-0.45% SALINE 1,000 ML IV SCH (22:45)
[2023-12-18 23:03] LABS: URINE RBC 811.9 /uL (0-23.9); YEAST FEW (NEGATIVE)
[2023-12-18 23:31] LABS: LACTIC ACID 4.6 mmol/L (0.4-2.0)
[2023-12-19] MEDS ORDERED: DEXTROSE 5%-WATER - 1,000 ML IV SCH (02:30)
[2023-12-19] MEDS ORDERED: LEVOTHYROXINE NA 125 MCG TABLET (FP) GT SCH ×3 (07:00→16:30)
[2023-12-19] MEDS ORDERED: PIPERACILLIN/TAZOB 4.5 GM 4.5 GM in DEXTROSE 5%-WATER 100 ML IVPB SCH (10:00)
[2023-12-19] MEDS ORDERED: FERROUS SULFATE 220 MG/5 ML ELIXIR GT SCH (10:00)
[2023-12-19] MEDS: FERROUS SULFATE 220 MG/5 ML ELIXIR GT SCH ×2 (10:00→21:47)
[2023-12-19 10:20] LABS: BASO % 0.4 % (0-2.0); EOS % 1.3 % (0-4.5); HEMATOCRIT 27.9 % (35.4-49); HEMOGLOBIN 8.4 GM/dL (11.7-16.9); LYMPH % 7.6 % (8-40); MCH 22.2 pg (25.7-33.7); MCHC 30.1 g/dl (32.0-35.9); MEAN CELL VOLUME 73.6 fl (80-96); MEAN PLT VOLUME 10.8 fl (7.5-11.1); MONO % 7.2 % (3.8-10.2); NEUT % 83.5 % (42.8-82.8); PLATELET COUNT 196 10^3/uL (134-434); RBC 3.79 M/mm3 (4.00-5.60); RDW 21.5 % (11.9-15.9); WHITE BLOOD COUNT 12.5 K/mm3 (4.0-10.0)
[2023-12-19 10:46] LABS: POTASSIUM 3.4 mmol/L (3.5-5.1)
[2023-12-19 11:04] LABS: LACTIC ACID 3.1 mmol/L (0.4-2.0)
[2023-12-19] MEDS: PANTOPRAZOLE SODIUM 40 MG VIAL IVPUSH SCH (11:47)
[2023-12-19] MEDS ORDERED: PIPERACILLIN/TAZOBACTAM 4.5 GM VIAL IVPB ONE (11:52)
[2023-12-19 13:57] VITALS: BMI 16.7
[2023-12-19] MEDS ORDERED: DEXTROSE 5%-WATER - 1,000 ML with POTASSIUM CHLORIDE 10 MEQ IV SCH (13:58)
[2023-12-19] MEDS ORDERED: POTASSIUM CHLORIDE ORAL LIQUID 20 MEQ/15 ML PO ONE (14:00)
[2023-12-19] MEDS: POTASSIUM CHLORIDE 10 MEQ in DEXTROSE 5%-WATER - 1,000 ML IV SCH (16:50)
[2023-12-19] MEDS: INSULIN ASPART SLIDING SCALE (NOVOLOG) 1 VIAL SQ SCH ×2 (16:50→21:59)
[2023-12-19] MEDS: PIPERACILLIN/TAZOB 4.5 GM 4.5 GM in DEXTROSE 5%-WATER 100 ML IVPB SCH (18:15)
[2023-12-19] MEDS: VANCOMYCIN/WATER FOR INJ (PEG) 750 MG/150 ML BAG IVPB SCH (21:47)
[2023-12-20] MEDS: PIPERACILLIN/TAZOB 4.5 GM 4.5 GM in DEXTROSE 5%-WATER 100 ML IVPB SCH ×3 (01:48→17:26)
[2023-12-20] MEDS: POTASSIUM CHLORIDE 10 MEQ in DEXTROSE 5%-WATER - 1,000 ML IV SCH ×3 (04:00→21:38)
[2023-12-20] MEDS: INSULIN ASPART SLIDING SCALE (NOVOLOG) 1 VIAL SQ SCH ×4 (06:26→21:30)
[2023-12-20] MEDS: LEVOTHYROXINE NA 150 MCG TABLET GT SCH (06:26)
[2023-12-20] MEDS: FERROUS SULFATE 220 MG/5 ML ELIXIR GT SCH ×2 (09:47→21:30)
[2023-12-20] MEDS: PANTOPRAZOLE SODIUM 40 MG VIAL IVPUSH SCH (09:47)
[2023-12-20 10:54] LABS: POTASSIUM 3.8 mmol/L (3.5-5.1)
[2023-12-20 11:06] LABS: CALCIUM 8.3 mg/dL (8.5-10.1)
[2023-12-20 11:07] LABS: BLOOD UREA NITROGEN 32.7 mg/dL (7-18)
[2023-12-20 11:08] LABS: ALBUMIN 1.4 g/dl (3.4-5.0)
[2023-12-20 11:11] LABS: BILIRUBIN,TOTAL 0.3 mg/dL (0.2-1); CREATININE 0.8 mg/dL (0.55-1.3)
[2023-12-20 11:12] LABS: TOT PROT 6.2 g/dl (6.4-8.2)
[2023-12-20] MEDS ORDERED: IRON SUCROSE INJECTION 200 MG in SODIUM CHLORIDE 90 ML IVPB ONE (16:00)
[2023-12-20] MEDS: VANCOMYCIN/WATER FOR INJ (PEG) 750 MG/150 ML BAG IVPB SCH (21:30)
[2023-12-21] MEDS: PIPERACILLIN/TAZOB 4.5 GM 4.5 GM in DEXTROSE 5%-WATER 100 ML IVPB SCH ×3 (01:06→17:02)
[2023-12-21] MEDS: POTASSIUM CHLORIDE 10 MEQ in DEXTROSE 5%-WATER - 1,000 ML IV SCH ×2 (06:05→18:36)
[2023-12-21] MEDS: LEVOTHYROXINE NA 150 MCG TABLET GT SCH (06:05)
[2023-12-21] MEDS: INSULIN ASPART SLIDING SCALE (NOVOLOG) 1 VIAL SQ SCH ×4 (06:09→22:25)
[2023-12-21] MEDS: PANTOPRAZOLE SODIUM 40 MG VIAL IVPUSH SCH (09:18)
[2023-12-21] MEDS: FERROUS SULFATE 220 MG/5 ML ELIXIR GT SCH ×2 (09:19→22:02)
[2023-12-21 10:51] LABS: BASO % 0.4 % (0-2.0); EOS % 1.8 % (0-4.5); HEMATOCRIT 27.6 % (35.4-49); HEMOGLOBIN 8.4 GM/dL (11.7-16.9); LYMPH % 14.2 % (8-40); MCH 22.2 pg (25.7-33.7); MCHC 30.5 g/dl (32.0-35.9); MEAN PLT VOLUME 10.4 fl (7.5-11.1); MONO % 8.2 % (3.8-10.2); NEUT % 75.4 % (42.8-82.8); PLATELET COUNT 214 10^3/uL (134-434); RBC 3.78 M/mm3 (4.00-5.60); RDW 21.6 % (11.9-15.9)
[2023-12-21 11:10] LABS: POTASSIUM 3.7 mmol/L (3.5-5.1)
[2023-12-21 11:20] LABS: ALBUMIN 1.4 g/dl (3.4-5.0); BLOOD UREA NITROGEN 21.5 mg/dL (7-18); CALCIUM 7.8 mg/dL (8.5-10.1)
[2023-12-21 11:23] LABS: CREATININE 0.9 mg/dL (0.55-1.3)
[2023-12-21 11:25] LABS: BILIRUBIN,TOTAL 0.3 mg/dL (0.2-1); TOT PROT 6.1 g/dl (6.4-8.2)
[2023-12-21] MEDS ORDERED: PIPERACILLIN/TAZOBACTAM 4.5 GM VIAL IVPB ONE (20:12)
[2023-12-21] MEDS: VANCOMYCIN/WATER FOR INJ (PEG) 1,000 MG/200 ML BAG IVPB SCH (22:02)
[2023-12-22] MEDS: POTASSIUM CHLORIDE 10 MEQ in DEXTROSE 5%-WATER - 1,000 ML IV SCH ×3 (01:15→22:38)
[2023-12-22] MEDS: PIPERACILLIN/TAZOB 4.5 GM 4.5 GM in DEXTROSE 5%-WATER 100 ML IVPB SCH ×3 (01:15→18:00)
[2023-12-22] MEDS: LEVOTHYROXINE NA 150 MCG TABLET GT SCH (06:24)
[2023-12-22] MEDS: INSULIN ASPART SLIDING SCALE (NOVOLOG) 1 VIAL SQ SCH ×4 (06:33→23:01)
[2023-12-22] MEDS: PANTOPRAZOLE SODIUM 40 MG VIAL IVPUSH SCH (09:33)
[2023-12-22] MEDS: FERROUS SULFATE 220 MG/5 ML ELIXIR GT SCH ×2 (09:33→22:35)
[2023-12-22] MEDS: ASCORBIC ACID 500 MG TABLET (FP) PO SCH (22:35)
[2023-12-23] MEDS: PIPERACILLIN/TAZOB 4.5 GM 4.5 GM in DEXTROSE 5%-WATER 100 ML IVPB SCH ×2 (02:15→09:26)
[2023-12-23] MEDS: INSULIN ASPART SLIDING SCALE (NOVOLOG) 1 VIAL SQ SCH ×4 (06:10→22:23)
[2023-12-23] MEDS: LEVOTHYROXINE NA 150 MCG TABLET GT SCH (06:12)
[2023-12-23] MEDS: VANCOMYCIN/WATER FOR INJ (PEG) 1,000 MG/200 ML BAG IVPB SCH ×2 (06:49→22:03)
[2023-12-23 09:18] LABS: HEMOGLOBIN 8.1 GM/dL (11.7-16.9); MCH 22.7 pg (25.7-33.7); MEAN CELL VOLUME 73.2 fl (80-96); MEAN PLT VOLUME 10.2 fl (7.5-11.1); PLATELET COUNT 189 10^3/uL (134-434); RBC 3.56 M/mm3 (4.00-5.60); RDW 21.8 % (11.9-15.9); WHITE BLOOD COUNT 8.3 K/mm3 (4.0-10.0)
[2023-12-23] MEDS: FERROUS SULFATE 220 MG/5 ML ELIXIR GT SCH ×2 (09:27→22:01)
[2023-12-23] MEDS: PANTOPRAZOLE SODIUM 40 MG VIAL IVPUSH SCH (09:27)
[2023-12-23] MEDS: MULTIVITAMINS (DAILY MVI) TABLET (FP) PO SCH (09:27)
[2023-12-23] MEDS: ZINC SULFATE 220 MG CAPSULE (FP) PO SCH (09:27)
[2023-12-23] MEDS: ASCORBIC ACID 500 MG TABLET (FP) PO SCH ×2 (09:27→22:01)
[2023-12-23] MEDS: POTASSIUM CHLORIDE 10 MEQ in DEXTROSE 5%-WATER - 1,000 ML IV SCH ×2 (09:29→19:28)
[2023-12-23 09:52] LABS: POTASSIUM 3.7 mmol/L (3.5-5.1)
[2023-12-23 10:04] LABS: ALBUMIN 1.4 g/dl (3.4-5.0); BLOOD UREA NITROGEN 12.1 mg/dL (7-18)
[2023-12-23 10:07] LABS: CREATININE 0.6 mg/dL (0.55-1.3)
[2023-12-23 10:08] LABS: BILIRUBIN,TOTAL 0.2 mg/dL (0.2-1); TOT PROT 5.9 g/dl (6.4-8.2)
[2023-12-23 15:31] VITALS: RESP 18
[2023-12-24] MEDS: POTASSIUM CHLORIDE 10 MEQ in DEXTROSE 5%-WATER - 1,000 ML IV SCH ×3 (06:51→13:28)
[2023-12-24] MEDS: INSULIN ASPART SLIDING SCALE (NOVOLOG) 1 VIAL SQ SCH ×3 (06:53→16:50)
[2023-12-24] MEDS: LEVOTHYROXINE NA 150 MCG TABLET GT SCH (06:53)
[2023-12-24] MEDS: FERROUS SULFATE 220 MG/5 ML ELIXIR GT SCH (09:54)
[2023-12-24] MEDS: PANTOPRAZOLE SODIUM 40 MG VIAL IVPUSH SCH (09:54)
[2023-12-24] MEDS: MULTIVITAMINS (DAILY MVI) TABLET (FP) PO SCH (09:55)
[2023-12-24] MEDS: ASCORBIC ACID 500 MG TABLET (FP) PO SCH (09:56)
[2023-12-24] MEDS: ZINC SULFATE 220 MG CAPSULE (FP) PO SCH (09:56)
[2023-12-24] MEDS: VANCOMYCIN/WATER FOR INJ (PEG) 1,000 MG/200 ML BAG IVPB SCH (15:49)
[2023-12-24 21:54] VITALS: BP 117/72; PULSE 65; TEMP 98
== END 2023-12-24 20:32 | DRG 871 ==
LOC: JER 17:52 → JERBED 22:40 → J5S 12-19 05:10
PROVIDERS: ADMIT Internal Medicine; ATTEND Family Medicine
DX: A41.89 Other specified sepsis (principal); L89.154 Pressure ulcer of sacral region, stage 4; L89.223 Pressure ulcer of left hip, stage 3; G93.1 Anoxic brain damage, not elsewhere classified; N17.9 Acute kidney failure, unspecified; N39.0 Urinary tract infection, site not specified; J96.11 Chronic respiratory failure with hypoxia; E87.20 Acidosis, unspecified; E87.0 Hyperosmolality and hypernatremia; E46 Unspecified protein-calorie malnutrition; Z68.1 Body mass index [BMI] 19.9 or less, adult; M86.9 Osteomyelitis, unspecified; E11.69 Type 2 diabetes mellitus with other specified complication; R65.20 Severe sepsis without septic shock; L89.222 Pressure ulcer of left hip, stage 2; L89.212 Pressure ulcer of right hip, stage 2; L89.892 Pressure ulcer of other site, stage 2; E11.51 Type 2 diabetes mellitus with diabetic peripheral angiopathy without gangrene; I11.0 Hypertensive heart disease with heart failure; I50.9 Heart failure, unspecified; J44.9 Chronic obstructive pulmonary disease, unspecified; I25.10 Atherosclerotic heart disease of native coronary artery without angina pectoris; K21.9 Gastro-esophageal reflux disease without esophagitis; E78.5 Hyperlipidemia, unspecified; I25.2 Old myocardial infarction; E03.9 Hypothyroidism, unspecified; N25.0 Renal osteodystrophy; D72.829 Elevated white blood cell count, unspecified
CPT/HCPCS: 0241U-QW; 36415; 71045-TC-FY; 80048; 80053; 81003; 82272; 82728; 82803; 82962; 83540; 83550; 83605; 83735; 84466; 84484; 85025; 85027; 85610; 85730; 86850; 86900; 86901; 87040; 87070; 87081; 87086; 87186; 87205; 87635; 93005; 93010; 99291; J1756